=== PATIENT | female | born 1935 | race Caucasian/White ===

== ENCOUNTER → 2017-11-13 15:51 | Outpatient (CLI) | payer MEDICARE, MEDICAID, SELFPAY ==
[2017-11-13 16:43] LABS: Basophils % 0.2 % (0.1-2.0); Eosinophils # 0.1 K/mm3 (0.0-0.4); Eosinophils % 0.7 % (0.1-12.0); Hematocrit 38.3 % (37.0-47.0); Hemoglobin 12.5 g/dL (12.2-16.2); Lymphocytes # 1.8 K/mm3 (0.7-4.5); Lymphocytes % 19.9 K/mm3 (10-50); Mean Corpuscular HGB Conc 32.6 g/dL (31.8-35.4); Mean Corpuscular Volume 79.9 fl (81-99); Mean Platelet Volume 7.4 fl (7.4-10.4); Monocytes # 0.5 K/mm3 (0.1-1.0); Monocytes % 4.9 % (1.7-9.3); Neutrophils # 6.9 K/mm3 (1.8-7.8); Neutrophils % 74.2 % (37.0-80.0); Platelet Count 328 K/mm3 (142-424); Red Blood Count 4.79 M/mm3 (4.20-5.40); Red Cell Distribution Width 15.9 % (11.5-17.5); White Blood Count 9.3 K/mm3 (4.8-10.8)
[2017-11-13 20:02] LABS: Alanine Aminotransferase 21 U/L (12-78); Albumin Level 3.9 gm/dL (3.4-5.0); Albumin/Globulin Ratio 1.4 (1.1-1.8); Alkaline Phosphatase 86 U/L (46-116); Bilirubin,Total 0.6 mg/dL (0.2-1.0); Blood Urea Nitrogen 7 mg/dL (7-18); Calcium 8.7 mg/dL (8.5-10.1); Carbon Dioxide 24 mmol/L (21.0-32.0); Cholesterol 134 mg/dL (140-200); Creatinine,Serum 0.58 mg/dL (0.55-1.02); Estimated Glomerular Filt Rate 100 ml/min (>60); GFR (African American) 121 ML/MIN (>60); Globulin 2.7 gm/dl (1.3-3.2); Glucose 159 mg/dL (74-106); HDL Cholesterol 67 mg/dL (29-89); LDL Cholesterol 37 mg/dL (0-130); Total Protein,Serum 6.6 gm/dL (6.4-8.2); Triglycerides 148 mg/dL (30-200); VLDL Cholesterol 30 mg/dL (0-40)
[2017-11-13 20:16] LABS: Anion Gap 14.5 mEq/L (5-15); Chloride 84 mmol/L (98-107); Sodium 118 mmol/L (136-145)
[2017-11-13 20:18] LABS: Hemoglobin A1C 7.4 % (0.0-7.0)
[2017-11-13 20:22] LABS: Aspartate Amino Transferase 13 U/L (15-37); Potassium 4.5 mmoL/L (3.5-5.1)
== END ==
PROVIDERS: PCP Internal Medicine Adolescent Medicine; Visit Provider Nurse Practitioner Family
DX: E11.69 Type 2 diabetes mellitus with other specified complication (principal); Z00.00 Encounter for general adult medical examination without abnormal findings; I10 Essential (primary) hypertension; K52.9 Noninfective gastroenteritis and colitis, unspecified
CPT/HCPCS: 36415; 80053; 80061; 83036; 85025

== ENCOUNTER → 2017-12-04 14:42 | Outpatient (CLI) | payer MEDICARE, MEDICAID, SELFPAY ==
[2017-12-04 14:59] LABS: Basophils % 0.4 % (0.1-2.0); Eosinophils # 0.1 K/mm3 (0.0-0.4); Eosinophils % 0.8 % (0.1-12.0); Hematocrit 36.8 % (37.0-47.0); Hemoglobin 12.3 g/dL (12.2-16.2); Lymphocytes % 27.8 K/mm3 (10-50); Mean Corpuscular HGB Conc 33.4 g/dL (31.8-35.4); Mean Corpuscular Hemoglobin 27.1 pg (27.0-31.2); Mean Platelet Volume 6.7 fl (7.4-10.4); Monocytes # 0.4 K/mm3 (0.1-1.0); Monocytes % 5.3 % (1.7-9.3); Neutrophils # 4.8 K/mm3 (1.8-7.8); Neutrophils % 65.6 % (37.0-80.0); Platelet Count 357 K/mm3 (142-424); Red Blood Count 4.55 M/mm3 (4.20-5.40); Red Cell Distribution Width 16.7 % (11.5-17.5); White Blood Count 7.3 K/mm3 (4.8-10.8)
[2017-12-04 15:23] LABS: Alanine Aminotransferase 24 U/L (12-78); Albumin/Globulin Ratio 1.5 (1.1-1.8); Alkaline Phosphatase 70 U/L (46-116); Anion Gap 13.1 mEq/L (5-15); Aspartate Amino Transferase 11 U/L (15-37); Bilirubin,Total 0.6 mg/dL (0.2-1.0); Blood Urea Nitrogen 10 mg/dL (7-18); Carbon Dioxide 25 mmol/L (21.0-32.0); Chloride 96 mmol/L (98-107); Creatinine,Serum 0.64 mg/dL (0.55-1.02); Estimated Glomerular Filt Rate 89 ml/min (>60); Free Thyroxine Index 2.9 ug/dL (5.93-13.13); GFR (African American) 108 ML/MIN (>60); Globulin 2.6 gm/dl (1.3-3.2); Glucose 146 mg/dL (74-106); Potassium 5.1 mmoL/L (3.5-5.1); Sodium 129 mmol/L (136-145); T4 (Thyroxine) 8.1 ug/dl (4.7-13.3); Thyroid Stimulating Hormone 3.76 uIU/ml (0.358-3.740); Total Protein,Serum 6.6 gm/dL (6.4-8.2); Triiodothryronine (T3) Uptake 36 % (31-39)
== END ==
PROVIDERS: PCP Internal Medicine Adolescent Medicine; Visit Provider Internal Medicine Adolescent Medicine
DX: E87.1 Hypo-osmolality and hyponatremia (principal); R53.83 Other fatigue; R53.81 Other malaise
CPT/HCPCS: 36415; 80053; 84436; 84443; 84479; 85025

== ENCOUNTER → 2017-12-11 13:07 | Outpatient (CLI) | payer MEDICARE, MEDICAID, SELFPAY ==
[2017-12-11 14:20] LABS: Anion Gap 15.4 mEq/L (5-15); Blood Urea Nitrogen 10 mg/dL (7-18); Calcium 8.6 mg/dL (8.5-10.1); Carbon Dioxide 24 mmol/L (21.0-32.0); Chloride 94 mmol/L (98-107); Creatinine,Serum 0.66 mg/dL (0.55-1.02); Estimated Glomerular Filt Rate 86 ml/min (>60); GFR (African American) 104 ML/MIN (>60); Glucose 192 mg/dL (74-106); Potassium 4.4 mmoL/L (3.5-5.1); Sodium 129 mmol/L (136-145)
[2017-12-11 14:21] LABS: Basophils % 0.5 % (0.1-2.0); Eosinophils # 0.1 K/mm3 (0.0-0.4); Hematocrit 35.6 % (37.0-47.0); Hemoglobin 11.6 g/dL (12.2-16.2); Lymphocytes # 1.6 K/mm3 (0.7-4.5); Lymphocytes % 22.8 K/mm3 (10-50); Mean Corpuscular HGB Conc 32.5 g/dL (31.8-35.4); Mean Corpuscular Hemoglobin 26.7 pg (27.0-31.2); Mean Corpuscular Volume 82.2 fl (81-99); Mean Platelet Volume 7.1 fl (7.4-10.4); Monocytes # 0.3 K/mm3 (0.1-1.0); Monocytes % 4.9 % (1.7-9.3); Neutrophils # 4.9 K/mm3 (1.8-7.8); Neutrophils % 70.8 % (37.0-80.0); Platelet Count 379 K/mm3 (142-424); Red Blood Count 4.32 M/mm3 (4.20-5.40); Red Cell Distribution Width 17.2 % (11.5-17.5); White Blood Count 6.9 K/mm3 (4.8-10.8)
== END ==
PROVIDERS: PCP Internal Medicine Adolescent Medicine; Visit Provider Internal Medicine Adolescent Medicine
DX: E87.1 Hypo-osmolality and hyponatremia (principal); R53.83 Other fatigue
CPT/HCPCS: 36415; 80048; 85025

== ENCOUNTER → 2018-01-13 08:56 | Outpatient (CLI) | payer MEDICARE, MEDICAID, SELFPAY ==
[2018-01-13 09:14] LABS: Basophils % 0.3 % (0.1-2.0); Eosinophils # 0.1 K/mm3 (0.0-0.4); Eosinophils % 1.4 % (0.1-12.0); Hematocrit 39.6 % (37.0-47.0); Hemoglobin 13.1 g/dL (12.2-16.2); Lymphocytes # 1.7 K/mm3 (0.7-4.5); Lymphocytes % 20.6 % (10-50); Mean Corpuscular Hemoglobin 27.5 pg (27.0-31.2); Mean Corpuscular Volume 83.4 fl (81-99); Mean Platelet Volume 6.9 fl (7.4-10.4); Monocytes # 0.4 K/mm3 (0.1-1.0); Monocytes % 4.8 % (1.7-9.3); Neutrophils # 5.9 K/mm3 (1.8-7.8); Neutrophils % 72.9 % (37.0-80.0); Platelet Count 345 K/mm3 (142-424); Red Blood Count 4.74 M/mm3 (4.20-5.40); White Blood Count 8.2 K/mm3 (4.8-10.8)
[2018-01-13 09:19] LABS: Hemoglobin A1C 8.2 % (0.0-7.0)
[2018-01-13 09:52] LABS: Alanine Aminotransferase 20 U/L (12-78); Albumin/Globulin Ratio 1.4 (1.1-1.8); Alkaline Phosphatase 97 U/L (46-116); Anion Gap 12.9 mEq/L (5-15); Aspartate Amino Transferase 7 U/L (15-37); Bilirubin,Total 0.6 mg/dL (0.2-1.0); Blood Urea Nitrogen 8 mg/dL (7-18); Carbon Dioxide 27 mmol/L (21.0-32.0); Chloride 93 mmol/L (98-107); Cholesterol 205 mg/dL (140-200); Creatinine,Serum 0.69 mg/dL (0.55-1.02); Estimated Glomerular Filt Rate 82 ml/min (>60); GFR (African American) 99 ML/MIN (>60); Globulin 2.8 gm/dl (1.3-3.2); Glucose 196 mg/dL (74-106); HDL Cholesterol 69 mg/dL (29-89); LDL Cholesterol 106 mg/dL (0-130); Potassium 4.9 mmoL/L (3.5-5.1); Sodium 128 mmol/L (136-145); Total Protein,Serum 6.8 gm/dL (6.4-8.2); Triglycerides 151 mg/dL (30-200); VLDL Cholesterol 30 mg/dL (0-40)
== END ==
PROVIDERS: Visit Provider Internal Medicine Adolescent Medicine
DX: E87.1 Hypo-osmolality and hyponatremia (principal); E11.9 Type 2 diabetes mellitus without complications; E11.69 Type 2 diabetes mellitus with other specified complication
CPT/HCPCS: 36415; 80053; 80061; 83036; 85025

== ENCOUNTER → 2018-04-23 12:55 | Outpatient (CLI) | payer MEDICARE, MEDICAID, SELFPAY ==
--- NOTE | 2018-04-23 13:03 | XR_ITS ---
XR DEXA axial skeleton HISTORY: ITS.REASON: POST MENOPAUSAL SCREENING ORDERING PHYSICIAN: Drew Franks MD PATIENT AGE: 82 years COMPARISON: None FINDINGS: The BMD measured at the Left femoral neck is 1.150 g/cm squared with a T score of 0.8. This is considered Normal according to the World Health Organization criteria. Fracture risk is Low. The L1 L4 density has T score of 3.6. IMPRESSION: Normal bone density. No fracture is. Suggest follow-up exam April 2020
[2018-04-23 16:44] LABS: Hemoglobin A1C 12.1 % (0.0-7.0)
[2018-04-23 16:54] LABS: Anion Gap 15.7 mEq/L (5-15); Blood Urea Nitrogen 18 mg/dL (7-18); Calcium 8.9 mg/dL (8.5-10.1); Carbon Dioxide 25 mmol/L (21.0-32.0); Chloride 99 mmol/L (98-107); Creatinine,Serum 0.82 mg/dL (0.55-1.02); Estimated Glomerular Filt Rate 67 ml/min (>60); GFR (African American) 81 ML/MIN (>60); Glucose 348 mg/dL (74-106); Potassium 4.7 mmoL/L (3.5-5.1); Sodium 135 mmol/L (136-145)
== END ==
PROVIDERS: PCP Internal Medicine Adolescent Medicine; Visit Provider Internal Medicine Adolescent Medicine
DX: Z78.0 Asymptomatic menopausal state (principal); E11.9 Type 2 diabetes mellitus without complications; E87.1 Hypo-osmolality and hyponatremia; Z79.84 Long term (current) use of oral hypoglycemic drugs
CPT/HCPCS: 36415; 77080; 80048; 83036

== ENCOUNTER → 2018-07-23 14:22 | Outpatient (CLI) | payer MEDICARE, MEDICAID, SELFPAY ==
[2018-07-23 16:15] LABS: Alanine Aminotransferase 20 U/L (12-78); Albumin Level 3.8 gm/dL (3.4-5.0); Albumin/Globulin Ratio 1.4 (1.1-1.8); Alkaline Phosphatase 82 U/L (46-116); Anion Gap 13.4 mEq/L (5-15); Aspartate Amino Transferase 9 U/L (15-37); Bilirubin,Total 0.5 mg/dL (0.2-1.0); Blood Urea Nitrogen 13 mg/dL (7-18); Calcium 8.5 mg/dL (8.5-10.1); Carbon Dioxide 27 mmol/L (21.0-32.0); Chloride 99 mmol/L (98-107); Estimated Glomerular Filt Rate 81 ml/min (>60); GFR (African American) 97 ML/MIN (>60); Globulin 2.7 gm/dl (1.3-3.2); Glucose 160 mg/dL (74-106); Potassium 4.4 mmoL/L (3.5-5.1); Sodium 135 mmol/L (136-145); Total Protein,Serum 6.5 gm/dL (6.4-8.2)
[2018-07-23 18:53] LABS: Hemoglobin A1C 7.8 % (0.0-7.0)
== END ==
PROVIDERS: Visit Provider Internal Medicine Adolescent Medicine
DX: E11.69 Type 2 diabetes mellitus with other specified complication
CPT/HCPCS: 36415; 80053; 83036

== ENCOUNTER → 2018-10-22 14:46 | Outpatient (CLI) | payer MEDICARE, MEDICAID, SELFPAY ==
[2018-10-22 17:20] LABS: Alanine Aminotransferase 17 U/L (12-78); Alkaline Phosphatase 87 U/L (46-116); Calcium 8.8 mg/dL (8.5-10.1); Chloride 98 mmol/L (98-107); Cholesterol 174 mg/dL (140-200); Potassium 4.6 mmoL/L (3.5-5.1); Sodium 134 mmol/L (136-145); Total Protein,Serum 6.5 gm/dL (6.4-8.2); Triglycerides 222 mg/dL (30-200); VLDL Cholesterol 44 mg/dL (0-40)
[2018-10-22 17:22] LABS: Albumin Level 3.9 gm/dL (3.4-5.0); Albumin/Globulin Ratio 1.5 (1.1-1.8); Anion Gap 14.6 mEq/L (5-15); Aspartate Amino Transferase 12 U/L (15-37); Bilirubin,Total 0.4 mg/dL (0.2-1.0); Blood Urea Nitrogen 12 mg/dL (7-18); Carbon Dioxide 26 mmol/L (21.0-32.0); Chol/HDL Ratio 3.3 (1-3.5); Creatinine,Serum 0.78 mg/dL (0.55-1.02); Estimated Glomerular Filt Rate 71 ml/min (>60); GFR (African American) 86 ML/MIN (>60); Globulin 2.6 gm/dl (1.3-3.2); Glucose 137 mg/dL (74-106); HDL Cholesterol 52 mg/dL (29-89); LDL Cholesterol 78 mg/dL (0-130)
[2018-10-22 23:23] LABS: Hemoglobin A1C 7.8 % (0.0-7.0)
== END ==
PROVIDERS: Visit Provider Internal Medicine Adolescent Medicine
DX: E11.69 Type 2 diabetes mellitus with other specified complication (principal)
CPT/HCPCS: 36415; 80053; 80061; 83036

== ENCOUNTER → 2022-03-27 08:54 | Outpatient (CLI) | payer MEDICARE, MEDICAID, SELFPAY ==
--- NOTE | 2022-03-27 09:05 | XR_ITS ---
FINAL REPORT CLINICAL HISTORY: hip pain FINDINGS: RIGHT HIP Two views of the right hip demonstrate no acute fracture or dislocation. There is marked narrowing of the right hip space, near obliteration of the joint space. There is sclerosis and lucency in the right femoral head, cannot exclude some element of avascular necrosis in the right femoral head. There are advanced changes of degenerative disc disease in the lower lumbar spine with vacuum disc phenomenon. No soft tissue abnormality is seen. IMPRESSION: Findings are consistent with advanced osteoarthritis, cannot exclude some element of avascular necrosis in the right femoral head. Reviewed, Interpreted and Dictated by Jose Lawrence MD Transcribed by Tierney Lopez Authenticated and [facility]
== END ==
PROVIDERS: Visit Provider Orthopaedic Surgery
DX: M25.551 Pain in right hip (principal)
CPT/HCPCS: 73502

== ENCOUNTER 2022-05-12 07:20 | Observation (INO) | payer MEDICARE, MEDICAID, SELFPAY ==
[2022-05-12] VITALS (13 sets, daily range): BP systolic 150–197; BP diastolic 57–83; PULSE 60–89; RESP 17–22; TEMP 36.6–36.8; O2SAT 79–94; BMI 32.5
--- NOTE | 2022-05-12 07:27 | PC.NURSE ---
ANITA FIELD at
--- NOTE | 2022-05-12 07:29 | ECG_ITS ---
APPROVED REPORT Exam: Resting ECG HR:87 bpm ECG Measurements Heart Rate 87 AXES IL 178 P 29 QRSd 96 QRS -4 QT 371 T 96 QTc 416 Conclusion SINUS RHYTHM WITH OCCASIONAL VENTRICULAR PREMATURE COMPLEXES MODERATE T-WAVE ABNORMALITY, CONSIDER LATERAL ISCHEMIA [-0.1+ mV T-WAVE IN I/aVL/V5/V6] ABNORMAL ECG UNCONFIRMED REPORT Electronically signed by : Drew Franks MD 05/12/2022 20:26:09
--- NOTE | 2022-05-12 07:33 | XR_ITS ---
PROCEDURE INFORMATION: Exam: XR Chest Exam date and time: 05/12/2022 7:54 AM Age: 86 years old Clinical indication: Shortness of breath; Additional info: SOA TECHNIQUE: Imaging protocol: Radiologic exam of the chest. Views: 1 view. Portable chest x-ray. COMPARISON: No relevant prior studies available. FINDINGS: Lungs: Perihilar and bibasilar interstitial opacities and peribronchial thickening. No confluent airspace consolidation. Lung volumes are low. Pleural spaces: No pleural effusion. No pneumothorax. Heart/Mediastinum: Borderline cardiomegaly. Bones/joints: No fractures or bone lesions. IMPRESSION: 1. Parahilar and bibasilar hazy interstitial opacities and peribronchial thickening may be due to pulmonary edema or pneumonia, either viral or atypical. 2. Low lung volumes. 3. Borderline cardiomegaly. Consider congestive heart failure.
--- NOTE | 2022-05-12 07:38 | HMH.EDGENADL ---
Discharge Plan Disposition Patient Disposition: Admitted As Inpatient Condition: Fair Prescriptions Prescriptions: No Action insulin lispro [Humalog KwikPen Insulin] 100 unit/mL insulin pen SQ amlodipine 10 mg tablet 10 mg PO DAILY atorvastatin 20 mg tablet 20 mg PO DAILY escitalopram oxalate 10 mg tablet 10 mg PO DAILY glimepiride 1 mg tablet 1 mg PO DAILY naproxen 375 mg tablet 375 mg PO DAILY memantine 10 mg tablet 10 mg PO BID levothyroxine 50 mcg tablet 50 mcg PO DAILY pantoprazole 20 mg tablet,delayed release (DR/EC) PO donepezil 10 mg tablet 10 mg PO DAILY Trulicity 0.75 mg/0.5 mL pen injector SQ memantine 5 mg tablet 5 mg PO BID Label Comments: TAKE ONE TABLET BY MOUTH EVERY DAY naproxen 375 mg tablet,delayed release (DR/EC) 375 mg PO BID Label Comments: TAKE ONE TABLET BY MOUTH TWICE DAILY --TAKE WITH FOOD-- acetaminophen-codeine 300-30 mg tablet 1 tab PO BID Qty: 60 2RF Rx Instructions: Give 1 tablet twice daily @ 8am & 8pm Referrals Follow up/Referrals: Santi Dee MD [Primary Care Provider] - See instructions Clinical Impressions Clinical Impression: CHF exacerbation Discharge ED Provider: Dami Mendoza General Adult HPI <Syed Schulte MD - Last Filed: 05/12/22 07:43> General Chief complaint: Shortness of Breath/Dyspnea Stated complaint: SOA, new onset O2 need Time Seen by Provider: 05/12/22 07:30 Mode of Arrival: EMS Source of Information: Patient and EMS Limitations: No Limitations History of Present Illness HPI narrative: Patient presents to the emergency department after reportedly being feeling short of breath and hypoxic at her nursing care facility. The patient has an unspecified respiratory problem however does not use supplemental oxygen. She comes in complaining of mostly shortness of breath which started this morning. She denies any fever, chills, nausea or vomiting. She describes worsening lower extremity edema. Related Data Home Medications Medication Instructions Recorded Confirmed amlodipine 10 mg tablet 10 mg PO DAILY 03/27/22 03/27/22 atorvastatin 20 mg tablet 20 mg PO DAILY 03/27/22 03/27/22 donepezil 10 mg tablet 10 mg PO DAILY 03/27/22 03/27/22 dulaglutide 0.75 mg/0.5 mL ml SQ 03/27/22 03/27/22 subcutaneous pen injector (Trulicity) escitalopram oxalate 10 mg tablet 10 mg PO DAILY 03/27/22 03/27/22 glimepiride 1 mg tablet 1 mg PO DAILY 03/27/22 03/27/22 insulin lispro 100 unit/mL ml SQ 03/27/22 03/27/22 subcutaneous pen (Humalog KwikPen (U-100) Insulin) levothyroxine 50 mcg tablet 50 mcg PO DAILY 03/27/22 03/27/22 memantine 10 mg tablet 10 mg PO BID 03/27/22 03/27/22 memantine 5 mg tablet 5 mg PO BID 03/27/22 03/27/22 naproxen 375 mg tablet 375 mg PO DAILY 03/27/22 03/27/22 naproxen 375 mg tablet,delayed 375 mg PO BID 03/27/22 03/27/22 release pantoprazole 20 mg tablet,delayed tab PO 03/27/22 03/27/22 release Previous Rx's Medication Instructions Recorded acetaminophen 300 mg-codeine 30 mg 1 tab PO BID pain #60 tabs 05/03/22 tablet Allergies Allergy/AdvReac Type Severity Reaction Status Date / Time Famotidine Allergy Intermediate CHEST PAIN Uncoded 03/27/22 10:22 Morphine Allergy Intermediate I-ITCHING Uncoded 03/27/22 10:22 Penicillin Allergy Intermediate SWELLING Uncoded 03/27/22 10:22 PPD REACTOR Allergy Unknown Uncoded 03/27/22 10:22 STATIN Allergy Unknown ITCHING/SCR Uncoded 03/27/22 10:22 ATCHING/SWE LLING [facility] <Syed Schulte MD - Last Filed: 05/12/22 07:43> [facility] Disclaimer: The information contained in this section may have been updated after the patient was seen, as this information can be updated by other users. Medical History Diabetes mellitus Osteoarthritis Social History (Reviewed 05/12/22 @ 07:39 by Rob
[2022-05-12 07:42] LABS: Basophils # 0.1 K/mm3 (0-0.2); Basophils % 0.7 % (0.1-2.0); Eosinophils # 0.2 K/mm3 (0.0-0.4); Eosinophils % 2.5 % (0.1-12.0); Hematocrit 31.2 % (37.0-47.0); Hemoglobin 9.8 g/dL (12.2-16.2); Lymphocytes # 2.2 K/mm3 (0.7-4.5); Lymphocytes % 26.8 % (10-50); Mean Corpuscular HGB Conc 31.3 g/dL (31.8-35.4); Mean Corpuscular Hemoglobin 23.4 pg (27.0-31.2); Mean Corpuscular Volume 74.7 fl (81-99); Mean Platelet Volume 9.2 fl (7.4-10.4); Monocytes # 0.5 K/mm3 (0.1-1.0); Monocytes % 6.1 % (1.7-9.3); Neutrophils # 5.2 K/mm3 (1.8-7.8); Neutrophils % 63.9 % (37.0-80.0); Platelet Count 335 K/mm3 (142-424); Red Blood Count 4.18 M/mm3 (4.20-5.40); White Blood Count 8.1 K/mm3 (4.8-10.8)
[2022-05-12 07:46] LABS: Microscopic, Urine URINE MICROSCOPIC (MICROSCOPIC)
[2022-05-12 07:47] LABS: Alanine Aminotransferase 15 U/L (12-78); Albumin Level 4.2 g/dl (3.5-5.0); Albumin/Globulin Ratio 1.6 (1.1-1.8); Alkaline Phosphatase 94 U/L (38-126); Anion Gap 10.1 mEq/L (5-15); Aspartate Amino Transferase 22 U/L (14-36); Bilirubin,Total 0.7 mg/dl (0.2-1.3); Blood Urea Nitrogen 17 mg/dl (7-17); Calcium 8.4 mg/dl (8.4-10.2); Carbon Dioxide 28 mmol/L (22.0-30.0); Chloride 104 mmol/L (98-107); Creatinine Clearance Estimated 59 mL/min (50-200); Estimated Glomerular Filt Rate 95 ml/min (>60); GFR (African American) 115 ML/MIN (>60); Globulin 2.7 g/dL (1.3-3.2); Glucose 135 mg/dl (74-100); Potassium 4.1 mmoL/L (3.5-5.1); Sodium 138 mmol/L (136-145); Total Protein,Serum 6.9 g/dl (6.3-8.2)
[2022-05-12 07:49] LABS: Appearance,Urine CLEAR (Clear); Bilirubin,Urine Negative (Negative); Blood, Urine TRACE-I (Negative); Color,Urine YELLOW (Yellow); Glucose,Urine (UA) Negative (Negative); Ketones,Urine Negative (Negative); Leukocyte Esterase,Urine Negative (Negative); Nitrate,Urine Negative (Negative); PH,Urine 6.5 (5.0-8.5); Protein,Urine 2+ (Negative); Specific Gravity, Urine 1.015 (1.005-1.030); Urobilinogen,Urine 0.2 EU/dl (0.2)
--- NOTE | 2022-05-12 07:49 | PC.NURSE ---
RT notified of ABG order.
[2022-05-12 08:00] LABS: Bacteria,Urine 4+ /lpf; RBC,Urine Occasional #/hpf (0-3); WBC,Urine Occasional #/hpf (0-3)
[2022-05-12 08:00] LABS: NT Pro Brain Natriuretic Pep. 1070 pg/mL (0-450); Troponin I < 0.01 ng/ml (0.00-0.034)
[2022-05-12 08:05] LABS: ABG HCO3 23.6 mmhg (22.0-26.0); ABG Oxygen Saturation 90 % (90-100); ABG PH 7.41 mmol/L (7.35-7.45); ABG PO2 58.9 mmhg (80-100); ABG TCO2 24.8 mmhg (23-27)
[2022-05-12 08:08] LABS: Allen's Test Acceptable; Oxygen 2 L NC %; Source Right Radial
[2022-05-12 08:49] LABS: Coronavirus 19, PCR Not Detected (NotDetected); Influenza A, PCR Not Detected (NotDetected); Influenza B, PCR Not Detected (NotDetected)
--- NOTE | 2022-05-12 09:08 | PC.NURSE ---
Ambulated patient with [place] BOO to bedside commode patient was able to void. Assisted patient back into bed. Call light within reach
--- NOTE | 2022-05-12 09:41 | PC.NURSE ---
Spoke with daughter, per patients request, regarding plan of care/treatment. Pt verbalizes pain. MD notified. New order received. Pt updated on plan of care; awaiting for final results for disposition. Pt assisted back into bed. Reduced environmental stimuli to promote comfort.
--- NOTE | 2022-05-12 09:46 | PC.NURSE ---
Assisted to patient to bedside commode. Patient was able to void and assisted patient back to bed with side rails up. Call light within reach
--- NOTE | 2022-05-12 10:09 | PC.NURSE ---
ANITA FIELD speaking with Dr. rico (hospitalist)
--- NOTE | 2022-05-12 10:18 | PC.NURSE ---
Assisted patient to bedside commode. Patient voided and assisted patient back in bed. Call light within reach
--- NOTE | 2022-05-12 10:19 | PC.NURSE ---
notified dry house attendant of admission
--- NOTE | 2022-05-12 10:41 | PC.NURSE ---
checked on pt at this time, updated pt we will be getting pt to assigned room soon.
--- NOTE | 2022-05-12 10:48 | PC.NURSE ---
Report provided to CHRISTINA Olivas
[2022-05-12 11:20] LABS: Troponin I < 0.01 ng/ml (0.00-0.034)
--- NOTE | 2022-05-12 13:55 | EXP.HP ---
History of Present Illness *Admission Date: 05/12/22 *Reason for visit:: Shortness of breath *History of present illness: 86-year-old female presenting to the emergency department after feeling shortness of breath at her nursing facility. She was also hypoxic. She states that the last month or so she has been having progressively worsening dyspnea orthopnea and lower extremity edema. She has no sick contacts. No specific respiratory problems previously. Complains of shortness of breath primarily and denies any fevers chills nausea or vomiting. She does not smoke. Does not have a history of heart problems that she is aware of. No kidney problems. Denies chest pain [facility] Disclaimer: The information contained in this section may have been updated after the patient was seen, as this information can be updated by other users. Medical History (Updated 05/12/22 @ 14:03 by Cristopher Garg MD) Diabetes mellitus HLD (hyperlipidemia) HTN (hypertension) Hypothyroid Osteoarthritis Surgical History (Updated 05/12/22 @ 13:48 by Alyce Burns RN) H/O abdominal hysterectomy History of bilateral knee replacement Hx of cholecystectomy Social History (Updated 05/12/22 @ 13:48 by Alyce Burns RN) Smoking Status: Former smoker alcohol intake: never current occupational status: retired Travel in the last 8 weeks: None Review of Systems Constitutional Constitutional: Reports as per [facility] Meds Home Medications and Allergies Home Medications Medication Instructions Recorded Confirmed Type amlodipine 10 mg tablet 10 mg PO DAILY 03/27/22 03/27/22 History atorvastatin 20 mg tablet 20 mg PO DAILY 03/27/22 03/27/22 History donepezil 10 mg tablet 10 mg PO DAILY 03/27/22 03/27/22 History dulaglutide 0.75 mg/0.5 mL ml SQ 03/27/22 03/27/22 History subcutaneous pen injector (Trulicity) escitalopram oxalate 10 mg tablet 10 mg PO DAILY 03/27/22 03/27/22 History glimepiride 1 mg tablet 1 mg PO DAILY 03/27/22 03/27/22 History insulin lispro 100 unit/mL ml SQ 03/27/22 03/27/22 History subcutaneous pen (Humalog KwikPen (U-100) Insulin) levothyroxine 50 mcg tablet 50 mcg PO DAILY 03/27/22 03/27/22 History memantine 10 mg tablet 10 mg PO BID 03/27/22 03/27/22 History memantine 5 mg tablet 5 mg PO BID 03/27/22 03/27/22 History naproxen 375 mg tablet 375 mg PO DAILY 03/27/22 03/27/22 History naproxen 375 mg tablet,delayed 375 mg PO BID 03/27/22 03/27/22 History release pantoprazole 20 mg tablet,delayed tab PO 03/27/22 03/27/22 History release acetaminophen 300 mg-codeine 30 mg 1 tab PO BID pain #60 tabs 05/03/22 Rx tablet New Prescriptions to Start Prescriptions: Allergies Allergy/AdvReac Type Severity Reaction Status Date / Time Famotidine Allergy Intermediate CHEST PAIN Uncoded 03/27/22 10:22 Morphine Allergy Intermediate I-ITCHING Uncoded 03/27/22 10:22 Penicillin Allergy Intermediate SWELLING Uncoded 03/27/22 10:22 PPD REACTOR Allergy Unknown Uncoded 03/27/22 10:22 STATIN Allergy Unknown ITCHING/SCR Uncoded 03/27/22 10:22 ATCHING/SWE LLING Exam Data for Last 24 hours Vital signs and Labs for Last 24 Hours: Temp Pulse Resp BP Pulse Ox 98 F 77 17 164/69 H 91 L 05/12/22 11:22 05/12/22 11:22 05/12/22 11:22 05/12/22 11:22 05/12/22 10:56 Laboratory Results - last 24 hr 05/12/22 07:28: Urine Color Yellow, Urine Appearance Clear, Urine pH 6.5, Ur Specific [place] 1.015, Urine Protein 2+, Urine Glucose (UA) Negative, Urine Ketones Negative, Urine Blood Trace-i, Urine Nitrate Negative, Urine Bilirubin Negative, Urine Urobilinogen 0.2, Ur Leukocyte Esterase Negative, Urine RBC Occasional, Urine WBC Occasional, Ur Squamous Epith Cells 3-5, Urine Bacteria 4+ 05/12/22 07:32: WBC 8.1, RBC 4.18 L, Hgb 9.8 L, Hct 31.2 L, MCV 74.7 L, MCH 23.4 L, MCHC 31.3 L, RDW 17.0, Plt Count 335, MPV 9.2, Neut % (Auto) 63.9, Lymph % (Auto) 26.8, [place] % (Auto) 6.1, Eos % (Auto) 2
[2022-05-12 14:21] LABS: Iron 32 ug/dL (37-170)
[2022-05-12 14:31] LABS: Total Iron Binding Capacity 383 ug/dL (265-497)
[2022-05-12 14:35] LABS: Troponin I < 0.01 ng/ml (0.00-0.034)
--- NOTE | 2022-05-12 14:37 | PC.NURSE ---
PT ARRIVED TO FLOOR BY WHEELCHAIR AT 1102.
[2022-05-12 14:59] LABS: Ferritin 10.2 ng/ml (11.1-264)
[2022-05-12 15:23] LABS: Hemoglobin A1C 8.9 % (4.0-6.0)
--- NOTE | 2022-05-12 17:54 | PC.NURSE ---
NEW ADMIT THIS SHIFT. REQUIRING 2LNC FOR O2 SUPPORT. AMBULATING IN ROOM WITH STANDBY ASSIST TO BSC.
[2022-05-12 18:41] LABS: POC Glucose,Bedside 259 (70-110)
[2022-05-12 20:23] LABS: POC Glucose,Bedside 273 (70-110)
[2022-05-13] VITALS (8 sets, daily range): BP systolic 115–167; BP diastolic 47–83; PULSE 50–80; RESP 18; TEMP 36.9–37.3; O2SAT 93–97; BMI 32.0
--- NOTE | 2022-05-13 05:58 | PC.NURSE ---
patient a&ox4. pt is stable on 2L. no complaints through the night. pt is on tele.
[2022-05-13 06:21] LABS: POC Glucose,Bedside 130 (70-110)
[2022-05-13 07:52] LABS: Basophils % 0.5 % (0.1-2.0); Eosinophils # 0.2 K/mm3 (0.0-0.4); Eosinophils % 2.8 % (0.1-12.0); Hematocrit 32.9 % (37.0-47.0); Hemoglobin 10.2 g/dL (12.2-16.2); Lymphocytes # 1.4 K/mm3 (0.7-4.5); Lymphocytes % 23.3 % (10-50); Mean Corpuscular Hemoglobin 23.1 pg (27.0-31.2); Mean Corpuscular Volume 74.5 fl (81-99); Mean Platelet Volume 8.7 fl (7.4-10.4); Monocytes # 0.4 K/mm3 (0.1-1.0); Monocytes % 7.3 % (1.7-9.3); Neutrophils # 3.9 K/mm3 (1.8-7.8); Neutrophils % 66.1 % (37.0-80.0); Platelet Count 328 K/mm3 (142-424); Red Blood Count 4.42 M/mm3 (4.20-5.40); White Blood Count 5.9 K/mm3 (4.8-10.8)
[2022-05-13 08:02] LABS: Alanine Aminotransferase 15 U/L (12-78); Albumin Level 4.2 g/dl (3.5-5.0); Albumin/Globulin Ratio 1.7 (1.1-1.8); Alkaline Phosphatase 90 U/L (38-126); Anion Gap 10.1 mEq/L (5-15); Aspartate Amino Transferase 25 U/L (14-36); Bilirubin,Total 0.8 mg/dl (0.2-1.3); Blood Urea Nitrogen 17 mg/dl (7-17); Calcium 8.5 mg/dl (8.4-10.2); Carbon Dioxide 33 mmol/L (22.0-30.0); Chloride 100 mmol/L (98-107); Creatinine Clearance Estimated 58 mL/min (50-200); Estimated Glomerular Filt Rate 80 ml/min (>60); GFR (African American) 96 ML/MIN (>60); Globulin 2.5 g/dL (1.3-3.2); Glucose 168 mg/dl (74-100); Magnesium 1.9 mg/dl (1.6-2.3); Phosphorous 4.3 mg/dl (2.5-4.5); Potassium 4.1 mmoL/L (3.5-5.1); Sodium 139 mmol/L (136-145); Total Protein,Serum 6.7 g/dl (6.3-8.2)
--- NOTE | 2022-05-13 10:00 | EXP.ACUTE.PN ---
Subjective *Date: 05/13/22 *Time: 10:00 Interval history: Feeling better, breathing better, extremity edema improved Medical Exam Vital signs and Labs for Last 24 Hours: Vital Signs Temp Pulse Pulse Resp BP BP Pulse Ox 05/13/22 07:59 98.4 F 69 18 153/83 H 95 05/13/22 04:00 50 L 05/13/22 04:00 98.4 F 75 18 130/78 96 05/12/22 20:00 60 05/13/22 00:00 99.2 F 64 18 167/63 H 93 L 05/12/22 20:00 98.3 F 67 18 150/57 H 92 L 05/12/22 16:00 80 05/12/22 15:55 97.9 F 63 22 155/66 H 90 L 05/12/22 12:00 70 05/12/22 11:22 98 F 77 17 164/69 H 05/12/22 10:56 65 167/60 H 91 L 05/12/22 11:00 97.9 F 65 18 167/60 H 05/12/22 10:30 78 20 91 L Intake and Output 05/12/22 05/13/22 05/13/22 23:59 07:59 15:59 Intake Total 480 / 580 100 / 460 360 / 460 Output Total 450 / 3050 1350 / 1350 0 / 1350 Balance 30 / -2470 -1250 / -890 360 / -890 Intake: Intake, Oral Amount 480 / 580 100 / 460 360 / 460 Output: Output, Urine Amount 450 / 3050 1350 / 1350 0 / 1350 Other: Number of Unmeasured Voids 1 1 Number of Bowel Movements 1 Weight 87.146 kg Patient Weight 05/13/22 23:59 Weight 87.146 kg Laboratory Results - last 24 hr 05/12/22 07:28: Urine Color Yellow, Urine Appearance Clear, Urine pH 6.5, Ur Specific [place] 1.015, Urine Protein 2+, Urine Glucose (UA) Negative, Urine Ketones Negative, Urine Blood Trace-i, Urine Nitrate Negative, Urine Bilirubin Negative, Urine Urobilinogen 0.2, Ur Leukocyte Esterase Negative, Urine RBC Occasional, Urine WBC Occasional, Ur Squamous Epith Cells 3-5, Urine Bacteria 4+ 05/12/22 07:32: Hemoglobin A1c 8.9 H 05/12/22 07:32: Iron 32 L, TIBC 383, Iron Saturation 8.27472 L, Ferritin 10.2 L 05/12/22 07:32: TSH 10.30 H 05/12/22 10:48: Troponin I < 0.01 05/12/22 13:59: Troponin I < 0.01 05/12/22 18:29: POC Glucose 259 H 05/12/22 20:16: POC Glucose 273 H 05/13/22 06:14: POC Glucose 130 H 05/13/22 07:35: WBC 5.9 D, RBC 4.42, Hgb 10.2 L, Hct 32.9 L, MCV 74.5 L, MCH 23.1 L, MCHC 31.0 L, RDW 17.0, Plt Count 328, MPV 8.7, Neut % (Auto) 66.1, Lymph % (Auto) 23.3, Sac % (Auto) 7.3, Eos % (Auto) 2.8, Baso % (Auto) 0.5, Neut # (Auto) 3.9, Lymph # (Auto) 1.4, Sac # (Auto) 0.4, Eos # (Auto) 0.2, Baso # (Auto) 0.0 05/13/22 07:35: Sodium 139, Potassium 4.1, Chloride 100, Carbon Dioxide 33 H, Anion Gap 10.1, BUN 17, Creatinine 0.70, Estimated Creat Clear 58, Estimated GFR 80, Est GFR ( Amer) 96, Glucose 168 H, Calcium 8.5, Phosphorus 4.3, Magnesium 1.9, Total Bilirubin 0.8, AST 25, ALT 15, Alkaline Phosphatase 90, Total Protein 6.7, Albumin 4.2, Globulin 2.5, Albumin/Globulin Ratio 1.7 I & O for Labs for Last 24 Hours: Intake & Output 05/10/22 05/11/22 05/12/22 05/13/22 23:59 23:59 23:59 23:59 Intake Total 480 / 580 460 / 460 Output Total 1999 / 3050 1350 / 1350 Balance -1520 / -2470 -890 / -890 Weight 88.904 kg 87.146 kg Microbiology Reports for the Last 24 Hours: Microbiology 05/12/22 07:28 Urine,Clean Catch Urine Culture - Preliminary Gram Negative Rods Constitutional: Present no acute distress Respiratory: Present normal respiratory effort Cardiac: Present Reg Rate and Rhythm GI: Present normal bowel sounds; Absent tenderness Extremities: Present normal inspection and full ROM Skin: Present intact; Absent erythema Neuro: Present Grossly Intact and moves all extremities Assessment and Plan *Assessment and plan (1) Osteoarthritis of right hip: Status: Acute Category: Medical Code(s): M16.11 - Unilateral primary osteoarthritis, right hip (2) CHF exacerbation: Status: Acute Category: Medical Code(s): I50.9 - Heart failure, unspecified (3) Diabetes: Status: Acute Category: Medical Code(s): E11.9 - Type 2 diabetes mellitus without complications Plan 86-year-old female who presents w
[2022-05-13 11:32] LABS: POC Glucose,Bedside 183 (70-110)
[2022-05-13 17:13] LABS: POC Glucose,Bedside 294 (70-110)
[2022-05-13 20:39] LABS: POC Glucose,Bedside 126 (70-110)
--- NOTE | 2022-05-13 23:41 | PC.NURSE ---
COURTESY ROUND PATIENT AWAKE . PATIENT VOICED NO NEEDS AT THIS TIME . TRASH AND LINENS EMPTIED . WATER PITCHER REFILLED . CALL LIGHT WITH IN REACH
[2022-05-14] VITALS: BP 133/73; PULSE 60; RESP 18; TEMP 36.9; O2SAT 97
[2022-05-14 04:00] VITALS: BP 121/54; PULSE 63; PULSE 73; RESP 18; TEMP 37.2; O2SAT 96; BMI 31.6
--- NOTE | 2022-05-14 04:07 | PC.NURSE ---
Pt. is aox4. pt is stable on 2L. no complaints through the night. pt is on tele. pt. gets up to bsc without assistant research scientist's.
[2022-05-14 06:12] LABS: POC Glucose,Bedside 190 (70-110)
[2022-05-14 07:27] LABS: Basophils % 0.7 % (0.1-2.0); Eosinophils # 0.2 K/mm3 (0.0-0.4); Eosinophils % 3.6 % (0.1-12.0); Hemoglobin 9.9 g/dL (12.2-16.2); Lymphocytes # 1.3 K/mm3 (0.7-4.5); Lymphocytes % 27.4 % (10-50); Mean Corpuscular HGB Conc 30.1 g/dL (31.8-35.4); Mean Corpuscular Hemoglobin 22.6 pg (27.0-31.2); Mean Corpuscular Volume 75.1 fl (81-99); Mean Platelet Volume 8.9 fl (7.4-10.4); Monocytes # 0.4 K/mm3 (0.1-1.0); Neutrophils # 2.9 K/mm3 (1.8-7.8); Neutrophils % 59.3 % (37.0-80.0); Platelet Count 311 K/mm3 (142-424); White Blood Count 4.8 K/mm3 (4.8-10.8)
[2022-05-14 07:32] LABS: Alanine Aminotransferase 14 U/L (12-78); Albumin Level 3.8 g/dl (3.5-5.0); Albumin/Globulin Ratio 1.7 (1.1-1.8); Alkaline Phosphatase 81 U/L (38-126); Anion Gap 8.6 mEq/L (5-15); Aspartate Amino Transferase 26 U/L (14-36); Bilirubin,Total 0.7 mg/dl (0.2-1.3); Blood Urea Nitrogen 20 mg/dl (7-17); Calcium 8.3 mg/dl (8.4-10.2); Carbon Dioxide 37 mmol/L (22.0-30.0); Chloride 99 mmol/L (98-107); Creatinine Clearance Estimated 57 mL/min (50-200); Estimated Glomerular Filt Rate 80 ml/min (>60); GFR (African American) 96 ML/MIN (>60); Globulin 2.3 g/dL (1.3-3.2); Glucose 169 mg/dl (74-100); Phosphorous 4.5 mg/dl (2.5-4.5); Potassium 3.6 mmoL/L (3.5-5.1); Sodium 141 mmol/L (136-145); Total Protein,Serum 6.1 g/dl (6.3-8.2)
[2022-05-14 07:40] LABS: Magnesium 1.9 mg/dl (1.6-2.3)
[2022-05-14 08:00] VITALS: BP 145/66; PULSE 67; PULSE 84; RESP 18; TEMP 36.7; O2SAT 98
--- NOTE | 2022-05-14 08:32 | SW/DCPLANNER ---
Addendum entered by Radha Vazquez 05/14/22 12:30: Patient will return to [facility] level of care today. Per Lexy ALVAREZ patient will not require a COVID swab prior to returning. Original Note: This patient currently resides at [facility] level of care. [facility] discharge date is unknown at this time.
[2022-05-14 10:09] VITALS: BMI 33.5
[2022-05-14 10:49] LABS: POC Glucose,Bedside 264 (70-110)
[2022-05-14 11:41] VITALS: BP 128/45; PULSE 65; RESP 18; TEMP 37.1; O2SAT 97
[2022-05-14 11:52] VITALS: O2SAT 95
[2022-05-14 12:00] VITALS: PULSE 64
--- NOTE | 2022-05-14 12:05 | EXP.DC.SUM ---
General Admission date:: 05/12/22 Discharge date: 05/14/22 HPI HPI HPI: 86-year-old female presenting to the emergency department after feeling shortness of breath at her nursing facility. She was also hypoxic. She states that the last month or so she has been having progressively worsening dyspnea orthopnea and lower extremity edema. She has no sick contacts. No specific respiratory problems previously. Complains of shortness of breath primarily and denies any fevers chills nausea or vomiting. She does not smoke. Does not have a history of heart problems that she is aware of. No kidney problems. Denies chest pain Hospital Course Hospital Course Hospital Course: 86-year-old female who presents with progressive dyspnea, orthopnea and lower extremity edema.? She has elevated BNP and pulmonary edema on chest x-ray.? Symptoms and findings most likely consistent with acute congestive heart failure exacerbation. CHF Patient admitted with new oxygen requirement and elevated BNP. Responded really well to diuresis with -2.5 L during hospitalization. Transition to oral potassium to continue diuresis upon discharge. Able to wean off oxygen. Medically stable for discharge back to nursing facility with daily diuretic. Will need repeat labs in a week to monitor electrolytes for possible repletion if develops any abnormalities. Echo obtained during admission, showing normal ejection fraction on preliminary read (greater than 55%). Formal read still pending. Microcytic anemia -Iron studies suggestive of low iron, recommend initiating iron supplementation daily. Appears to be chronic. Diabetes -A1c obtained, 8.9 during admission. Recommend further adjustment to outpatient diabetes regimen. Continued current regimen at discharge. Treated with sliding scale insulin during admission. Hypothyroid -TSH 10.3 during admission. Will increase levothyroxine to 75 mcg daily. Stable for discharge back to her facility. Continue inpatient care [facility]. Exam Data for Last 24 hours Vital signs and Labs for Last 24 Hours: Temp Pulse Resp BP Pulse Ox 98.8 F 65 18 128/45 L 95 05/14/22 11:41 05/14/22 11:41 05/14/22 11:41 05/14/22 11:41 05/14/22 11:52 Laboratory Results - last 24 hr 05/13/22 16:47: POC Glucose 294 H 05/13/22 20:26: POC Glucose 126 H 05/14/22 06:01: POC Glucose 190 H 05/14/22 06:27: WBC 4.8, RBC 4.40, Hgb 9.9 L, Hct 33.0 L, MCV 75.1 L, MCH 22.6 L, MCHC 30.1 L, RDW 17.0, Plt Count 311, MPV 8.9, Neut % (Auto) 59.3, Lymph % (Auto) 27.4, [place] % (Auto) 9.0, Eos % (Auto) 3.6, Baso % (Auto) 0.7, Neut # (Auto) 2.9, Lymph # (Auto) 1.3, [place] # (Auto) 0.4, Eos # (Auto) 0.2, Baso # (Auto) 0.0 05/14/22 06:27: Sodium 141, Potassium 3.6, Chloride 99, Carbon Dioxide 37 H, Anion Gap 8.6, BUN 20 H, Creatinine 0.70, Estimated Creat Clear 57, Estimated GFR 80, Est GFR ( Amer) 96, Glucose 169 H, Calcium 8.3 L, Phosphorus 4.5, Total Bilirubin 0.7, AST 26, ALT 14, Alkaline Phosphatase 81, Total Protein 6.1 L, Albumin 3.8, Globulin 2.3, Albumin/Globulin Ratio 1.7 05/14/22 06:27: Magnesium 1.9 05/14/22 10:38: POC Glucose 264 H I & O for Last 24 hours: Intake & Output 05/11/22 05/12/22 05/13/22 05/14/22 23:59 23:59 23:59 23:59 Intake Total 480 / 580 940 / 940 240 / 240 Output Total 2000 / 3050 1650 / 1950 600 / 600 Balance -1520 / -2470 -710 / -1010 -360 / -360 Weight 88.904 kg 87.146 kg 86 kg Constitutional Constitutional: no acute distress *Routine HEENT Exam Head: Present normocephalic Eye: Present EOMI and PERRL ENT: Present mucous membranes moist *Routine Neck Exam Neck: Present supple; Absent lymphadenopathy *Routine Respiratory Exam Respiratory: Present CTA bilaterally *Routine Cardiovascular Exam Cardiovascular: Present RRR *Routine Abdominal Exam Abdominal: Present soft and normoactive bowel sounds; Absent tenderness *Routine Rectal Exam Patient deferred: visual exam *Routine Ex
--- NOTE | 2022-05-14 13:44 | EXP.CARD.CON ---
History of Present Illness History of Present Illness Consult date: 05/14/22 Requesting physician: Cristopher Garg Consult reason: shortness of breath Chief complaint: soa History of present illness: Hospitalist note: 86-year-old female presenting to the emergency department after feeling shortness of breath at her nursing facility.? She was also hypoxic.? She states that the last month or so she has been having progressively worsening dyspnea orthopnea and lower extremity edema.? She has no sick contacts.? No specific respiratory problems previously.? Complains of shortness of breath primarily and denies any fevers chills nausea or vomiting.? She does not smoke.? Does not have a history of heart problems that she is aware of.? No kidney problems.? Denies chest pain Cardiology note: Mrs. Kaur is an 86 year old white female admitted for acute on chronic HFpEF exacerbation. Patient diuresed over the weekend with IV lasix and has a negative balance of 420 mLs. Reports feels better. Reports soa and LE edema have improved. Denies chest pain. Preliminary Echo shows an EF > 55, DD, and RSVP of 30. PFSH [facility] Disclaimer: The information contained in this section may have been updated after the patient was seen, as this information can be updated by other users. Medical History (Updated 05/14/22 @ 13:51 by Judith Caceres APRN) Diabetes mellitus HLD (hyperlipidemia) HTN (hypertension) Hypothyroid Osteoarthritis Surgical History (Updated 05/12/22 @ 13:48 by Alyce Burns RN) H/O abdominal hysterectomy History of bilateral knee replacement Hx of cholecystectomy Social History (Updated 05/12/22 @ 13:48 by Alyce Burns RN) Smoking Status: Former smoker alcohol intake: never current occupational status: retired Travel in the last 8 weeks: None Review of Systems Review of Systems Review of systems:: pertinent systems reviewed and negative unless documented below *Cardiovascular Cardiovascular: Reports dyspnea on exertion *Respiratory Respiratory: Reports dyspnea on exertion Exam Data for Last 24 hours Vital signs and Labs for Last 24 Hours: Temp Pulse Resp BP Pulse Ox 98.8 F 64 18 128/45 L 95 05/14/22 11:41 05/14/22 12:00 05/14/22 11:41 05/14/22 11:41 05/14/22 11:52 Laboratory Results - last 24 hr 05/13/22 16:47: POC Glucose 294 H 05/13/22 20:26: POC Glucose 126 H 05/14/22 06:01: POC Glucose 190 H 05/14/22 06:27: WBC 4.8, RBC 4.40, Hgb 9.9 L, Hct 33.0 L, MCV 75.1 L, MCH 22.6 L, MCHC 30.1 L, RDW 17.0, Plt Count 311, MPV 8.9, Neut % (Auto) 59.3, Lymph % (Auto) 27.4, [place] % (Auto) 9.0, Eos % (Auto) 3.6, Baso % (Auto) 0.7, Neut # (Auto) 2.9, Lymph # (Auto) 1.3, [place] # (Auto) 0.4, Eos # (Auto) 0.2, Baso # (Auto) 0.0 05/14/22 06:27: Sodium 141, Potassium 3.6, Chloride 99, Carbon Dioxide 37 H, Anion Gap 8.6, BUN 20 H, Creatinine 0.70, Estimated Creat Clear 57, Estimated GFR 80, Est GFR ( Amer) 96, Glucose 169 H, Calcium 8.3 L, Phosphorus 4.5, Total Bilirubin 0.7, AST 26, ALT 14, Alkaline Phosphatase 81, Total Protein 6.1 L, Albumin 3.8, Globulin 2.3, Albumin/Globulin Ratio 1.7 05/14/22 06:27: Magnesium 1.9 05/14/22 10:38: POC Glucose 264 H I & O for Last 24 hours: Intake & Output 05/11/22 05/12/22 05/13/22 05/14/22 23:59 23:59 23:59 23:59 Intake Total 480 / 580 940 / 940 240 / 240 Output Total 2000 / 3050 1650 / 1950 600 / 600 Balance -1520 / -2470 -710 / -1010 -360 / -360 Weight 196 lb 192 lb 2 oz 189 lb 9.561 oz Constitutional Constitutional: no acute distress *Routine Respiratory Exam Respiratory: Present CTA bilaterally and symmetric chest movement *Routine Cardiovascular Exam Cardiovascular: Present RRR, Normal S1 and Normal S2 *Routine Abdominal Exam Abdominal: Present soft and normoactive bowel sounds; Absent tenderness *Routine Extremities Exam Extremities: Present full ROM and normal capillary refill; Absent edema *Routine Skin Exam Skin: Present intact,
--- NOTE | 2022-05-15 14:03 | CARE MANAGER ---
Contacted [facility]. They state patient is doing well and they deny any questions or concerns. CHRISTINA Siddiqi
== END 2022-05-14 15:13 ==
LOC: ER 10:26 → 2ND 11:36
PROVIDERS: Emergency Medicine; Admitting Provider Student in an Organized Health Care Education/Training Program; Emergency Provider Student in an Organized Health Care Education/Training Program; PCP Emergency Medicine; Visit Provider Student in an Organized Health Care Education/Training Program
DX: I50.9 Heart failure, unspecified (principal); M16.11 Unilateral primary osteoarthritis, right hip; E11.9 Type 2 diabetes mellitus without complications; I11.0 Hypertensive heart disease with heart failure; E03.9 Hypothyroidism, unspecified; D64.9 Anemia, unspecified; J96.21 Acute and chronic respiratory failure with hypoxia; Z79.4 Long term (current) use of insulin; Z79.899 Other long term (current) drug therapy; Z20.822 Contact with and (suspected) exposure to COVID-19
CPT/HCPCS: G0378; 36415; 71045; 80053; 81001; 82728; 82803; 82962; 83036; 83540; 83550; 83735; 83880; 84100; 84443; 84484; 85025; 87086; 87088; 87186; 93005; 93306; 99285; C9803; U0003; U0005

== ENCOUNTER 2023-01-03 12:15 | Inpatient (IN) | payer MEDICARE, MEDICAID, SELFPAY ==
[2023-01-03] VITALS (15 sets, daily range): BP systolic 116–168; BP diastolic 49–93; PULSE 58–98; RESP 16–22; TEMP 36.7–37.1; O2SAT 89–99; BMI 40.3; BMI 39.1
--- NOTE | 2023-01-03 12:24 | ECG_ITS ---
APPROVED REPORT Exam: Resting ECG HR:74 bpm ECG Measurements Heart Rate 74 AXES QRSd 100 QRS 4 QT 412 T -7 QTc 439 Conclusion ATRIAL FIBRILLATION NONSPECIFIC ST & T-WAVE ABNORMALITY ABNORMAL RHYTHM ECG UNCONFIRMED REPORT Electronically signed by : Drew Franks MD 01/03/2023 20:56:18
--- NOTE | 2023-01-03 12:36 | XR_ITS ---
FINAL REPORT CLINICAL HISTORY: Shortness of breath, hypoxemia COMPARISON: 05/12/2022 FINDINGS: The heart size is mildly enlarged. The mediastinum is normal. There is no focal infiltrate or edema. There are chronic changes at the lung bases. There are no pleural effusions. There is no pneumothorax. There is no osseous abnormality. IMPRESSION: No acute cardiopulmonary process Reviewed, Interpreted and Dictated by Jose Lawrence MD Transcribed by Kaylah Mckee Authenticated and [facility]
[2023-01-03 12:43] LABS: Basophils % 0.2 % (0.1-2.0); Eosinophils # 0.1 K/mm3 (0.0-0.4); Eosinophils % 0.4 % (0.1-12.0); Hematocrit 26.7 % (37.0-47.0); Hemoglobin 8.2 g/dL (12.2-16.2); Lymphocytes % 8.4 % (10-50); Mean Corpuscular HGB Conc 30.7 g/dL (31.8-35.4); Mean Corpuscular Hemoglobin 19.1 pg (27.0-31.2); Mean Corpuscular Volume 62.2 fl (81-99); Mean Platelet Volume 7.7 fl (7.4-10.4); Monocytes # 0.5 K/mm3 (0.1-1.0); Monocytes % 4.5 % (1.7-9.3); Neutrophils # 10.3 K/mm3 (1.8-7.8); Neutrophils % 86.5 % (37.0-80.0); Platelet Count 333 K/mm3 (142-424); Red Cell Distribution Width 19.7 % (11.5-17.5); White Blood Count 11.9 K/mm3 (4.8-10.8)
--- NOTE | 2023-01-03 12:43 | HMH.EDGENADL ---
Discharge Plan Disposition Patient Disposition: Admitted Chief Complaint: Shortness of Breath/Dyspnea Prescriptions Prescriptions: No Action insulin lispro [Humalog KwikPen Insulin] 100 unit/mL insulin pen 0 ml SQ ACHS amlodipine 10 mg tablet 10 mg PO DAILY atorvastatin 20 mg tablet 20 mg PO HS escitalopram oxalate 10 mg tablet 10 mg PO DAILY glimepiride 1 mg tablet 1 mg PO DAILY memantine 10 mg tablet 10 mg PO BID donepezil 10 mg tablet 10 mg PO DAILY naproxen 375 mg tablet,delayed release (DR/EC) 375 mg PO BID Patient Comments: TAKE ONE TABLET BY MOUTH TWICE DAILY --TAKE WITH FOOD-- acetaminophen-codeine 300-30 mg tablet 1 tab PO 0800,1999 Qty: 60 2RF Rx Instructions: Give 1 tablet twice daily @ 8am & 8pm prednisone 5 mg tablet 5 mg PO DAILY pantoprazole 40 mg tablet,delayed release (DR/EC) 40 mg PO DAILY insulin asp prt-insulin aspart [Novolog Mix 70-30FlexPen U-100] 100 unit/mL (70-30) insulin pen 0 ml SQ . furosemide 40 mg Tablet 40 mg PO DAILY 30 Days Qty: 30 0RF levothyroxine 75 mcg capsule 75 mcg PO DAILY 30 Days Qty: 30 0RF Referrals Follow up/Referrals: Santi Dee MD [Primary Care Provider] - See instructions Clinical Impressions Clinical Impression: COPD exacerbation CHF (congestive heart failure) Qualifiers: Heart failure type: other Qualified Code(s): I50.9 - Heart failure, unspecified Discharge ED Provider: Rober Crabtree General Adult HPI General Chief complaint: Shortness of Breath/Dyspnea Stated complaint: Shortness of Breath Time Seen by Provider: 01/03/23 12:22 Mode of Arrival: EMS Source of Information: EMS Limitations: No Limitations Description of Symptoms (Recalled from ER Triage Doc. by RN): EMS states they were called to the facility for a patient transfer when it was seen that patient had extreme shortness of breath. Reports that the patient was recently put on Lasix and has since ran out of her prescription. Patient is short of breath. History of Present Illness HPI narrative: 87-year-old female with history of hypertension, hyperlipidemia, diabetes, COPD on home oxygen, CAD status post stenting presenting with shortness of breath. EMS was called to the facility when she was acting short of breath, patient allegedly placed on Lasix recently. She also states that she has been coughing more and coughing up phlegm, but no fevers or chills, nausea or vomiting, confusion, Or any other concerns at this time Related Data Home Medications Medication Instructions Recorded Confirmed amlodipine 10 mg tablet 10 mg PO DAILY High blood pressure 03/27/22 06/19/22 atorvastatin 20 mg tablet 20 mg PO HS Cholesterol 03/27/22 06/19/22 donepezil 10 mg tablet 10 mg PO DAILY dementia 03/27/22 06/19/22 escitalopram oxalate 10 mg tablet 10 mg PO DAILY Depression 03/27/22 06/19/22 glimepiride 1 mg tablet 1 mg PO DAILY Diabetes 03/27/22 06/19/22 insulin lispro 100 unit/mL 0 ml SQ ACHS Diabetes 03/27/22 06/19/22 subcutaneous pen (Humalog KwikPen (U-100) Insulin) memantine 10 mg tablet 10 mg PO BID dementia 03/27/22 06/19/22 naproxen 375 mg tablet,delayed 375 mg PO BID Pain 03/27/22 06/19/22 release pantoprazole 40 mg tablet,delayed 40 mg PO DAILY Acid reflux 05/12/22 06/19/22 release prednisone 5 mg tablet 5 mg PO DAILY inflammation 05/12/22 06/19/22 insulin aspar prot-insulin aspart 0 ml SQ . Diabetes 05/13/22 06/19/22 100 unit/mL (70-30) subcutaneous pen (Novolog Mix 70-30FlexPen U-100) Previous Rx's Medication Instructions Recorded furosemide 40 mg tablet 40 mg PO DAILY 30 days #30 tabs 05/14/22 levothyroxine 75 mcg capsule 75 mcg PO DAILY 30 days #30 caps 05/14/22 acetaminophen 300 mg-codeine 30 mg 1 tab PO 0800,1999 pain #60 tabs 11/26/22 tablet Allergies Allergy/AdvReac Type Severity Reaction Status Date / Time morphine Allergy Intermediate ITCHING Veri
[2023-01-03 12:44] LABS: MANUAL DIFFERENTIAL MANUAL DIFFERENTIAL (MANUAL DIFF)
[2023-01-03 12:46] LABS: Chloride 101 mmol/L (98-107); Potassium 4.1 mmoL/L (3.5-5.1); Sodium 138 mmol/L (136-145)
[2023-01-03 12:48] LABS: Alanine Aminotransferase 24 U/L (12-78); Alkaline Phosphatase 81 U/L (38-126); Aspartate Amino Transferase 32 U/L (14-36); Bilirubin,Total 0.7 mg/dl (0.2-1.3); Blood Urea Nitrogen 18 mg/dl (7-17); Creatinine Clearance Estimated 74 mL/min (50-200); Estimated Glomerular Filt Rate 68 ml/min (>60); GFR (African American) 82 ML/MIN (>60)
[2023-01-03 12:49] LABS: Albumin Level 4.2 g/dl (3.5-5.0); Albumin/Globulin Ratio 1.4 (1.1-1.8); Anion Gap 9.1 mEq/L (5-15); Calcium 8.5 mg/dl (8.4-10.2); Carbon Dioxide 32 mmol/L (22.0-30.0); Creatine Kinase 107 U/L (30-135); Globulin 2.9 g/dL (1.3-3.2); Glucose 170 mg/dl (74-100); Total Protein,Serum 7.1 g/dl (6.3-8.2)
[2023-01-03 12:57] LABS: VBG Base Excess 1.7 mmol/L (-2.4-2.3); VBG HCO3 27.2 mmol/L (23-30); VBG Oxygen Saturation 76.8 % (50-70); VBG PCO2 49.9 mmol/L (35-51); VBG PH 7.36 mmol/L (7.31-7.41); VBG PO2 42.5 mmol/L (28-40); VBG Total CO2 28.8 mmol/L (23-27)
[2023-01-03 12:58] LABS: Anisocytosis 1+; Hypochromasia 2+; Lymphocytes % 9 % (10-50); Monocytes % 4 % (2-9); NT Pro Brain Natriuretic Pep. 4180 pg/mL (0-450); Neutrophils % 87 % (42-76); Platelet Estimate Normal; Total Cells Counted 100
[2023-01-03 12:59] LABS: Microcytosis 2+; Ovalocytes 1+
[2023-01-03 13:02] LABS: Troponin I < 0.01 ng/ml (0.00-0.034)
--- NOTE | 2023-01-03 14:55 | PC.NURSE ---
Pt wheeled to bathroom, patient got very short of breath going back to room/. Initial sat before being put on O2 was 85%, back up to 90% + after being put back on o2.
[2023-01-03 14:56] LABS: Coronavirus 19, PCR Not Detected (NotDetected); Influenza A, PCR Not Detected (NotDetected); Influenza B, PCR Not Detected (NotDetected)
--- NOTE | 2023-01-03 15:16 | PC.NURSE ---
Care Management notified of admission.
--- NOTE | 2023-01-03 15:31 | SW/DCPLANNER ---
Addendum entered by Radha Vazquez 01/04/23 11:04: I have updated Lexy pradhan/ [facility] that pending no setbacks patient will return tomorrow 01/05/23. Addendum entered by Radha Vazquez 01/04/23 07:54: Updated patient information has been faxed to Lexy pradhan/ [facility]. Original Note: This patient currently resides at [facility] level of care. I will continue to follow up w/ Lexy until patient is medically stable for discharge. Discharge date is unknown at this time.
--- NOTE | 2023-01-03 15:44 | PC.NURSE ---
Report called to CHRISTINA Fitch on Med Surg.
[2023-01-03 16:25] LABS: Troponin I 0.02 ng/ml (0.00-0.034)
--- NOTE | 2023-01-03 16:42 | ECG_ITS ---
APPROVED REPORT Exam: Resting ECG HR:139 bpm ECG Measurements Heart Rate 139 AXES QRSd 106 QRS 9 QT 315 T 98 QTc 396 Conclusion ATRIAL FIBRILLATION WITH RAPID VENTRICULAR RESPONSE WITH ABERRANT CONDUCTION OR VENTRICULAR PREMATURE COMPLEXES POSSIBLE ANTERIOR MYOCARDIAL INFARCTION , PROBABLY OLD [30 ms Q WAVE IN V3/V4, OR R < 0.2 mV IN V4] ABNORMAL RHYTHM ECG UNCONFIRMED REPORT Electronically signed by : Drew Franks MD 01/04/2023 16:10:29
--- NOTE | 2023-01-03 18:17 | PC.NURSE ---
pt is pleasantly confused, alert to self and place and forgets things quickly. pt tore off heart monitor and cont pulse ox. reeducated on the need for heart monitor. afib per tele. pt had an episode of afib rvr treated with one dose lopressor, hr now 80s. pt stated feeling tired, assisted to bed x1 assist, does well transferring. pt resting well at this time. bed alarm on for pt safety and cb within reach.
--- NOTE | 2023-01-03 18:28 | EXP.HP ---
History of Present Illness *Admission Date: 01/03/23 *Reason for visit:: hypoxia *History of present illness: Patient is a 87-[facility]-old female [facility] who presented to hospital due to possible confusion, patient was found to be confused as well as patient was found hypoxic, EMS was called patient was brought to the hospital. Patient has dementia, patient does not remember the sequence of events. Patient has past medical history of diabetes mellitus hypertension COPD CHF. [facility] Disclaimer: The information contained in this section may have been updated after the patient was seen, as this information can be updated by other users. Medical History Diabetes mellitus HLD (hyperlipidemia) HTN (hypertension) Hypothyroid Osteoarthritis Surgical History H/O abdominal hysterectomy History of bilateral knee replacement Hx of cholecystectomy Social History (Updated 01/03/23 @ 16:26 by Anjelica Ngo RN) Smoking Status: Never smoker alcohol intake: never current occupational status: retired Travel in the last 8 weeks: None Review of Systems Review of Systems Review of systems:: pertinent systems reviewed and negative unless documented below Meds Home Medications and Allergies Home Medications Medication Instructions Recorded Confirmed Type amlodipine 10 mg tablet 10 mg PO DAILY High blood pressure 03/27/22 01/03/23 History atorvastatin 20 mg tablet 20 mg PO HS Cholesterol 03/27/22 01/03/23 History donepezil 10 mg tablet 10 mg PO DAILY dementia 03/27/22 01/03/23 History escitalopram oxalate 10 mg tablet 10 mg PO DAILY Depression 03/27/22 01/03/23 History glimepiride 1 mg tablet 1 mg PO DAILY Diabetes 03/27/22 01/03/23 History memantine 10 mg tablet 10 mg PO BID dementia 03/27/22 01/03/23 History pantoprazole 40 mg tablet,delayed 40 mg PO DAILY Acid reflux 05/12/22 01/03/23 History release prednisone 5 mg tablet 5 mg PO DAILY inflammation 05/12/22 01/03/23 History insulin aspar prot-insulin aspart 0 ml SQ . Diabetes 05/13/22 01/03/23 History 100 unit/mL (70-30) subcutaneous pen (Novolog Mix 70-30FlexPen U-100) levothyroxine 75 mcg capsule 75 mcg PO DAILY 30 days #30 caps 05/14/22 01/03/23 Rx acetaminophen 300 mg-codeine 30 mg 1 tab PO 08,1999 pain #60 tabs 11/26/22 01/03/23 Rx tablet New Prescriptions to Start Prescriptions: Allergies Allergy/AdvReac Type Severity Reaction Status Date / Time morphine Allergy Intermediate ITCHING Verified 06/19/22 11:15 Penicillins Allergy Intermediate SWELLING Verified 06/19/22 11:15 [id number] Reductase Allergy Intermediate ITCHING/SWE Verified 06/19/22 11:15 Inhibitor LLING promethazine [From Phenergan] Allergy Verified 01/03/23 12:21 famotidine AdvReac Intermediate Chest Pain Verified 06/19/22 11:15 tuberculin, purified protein AdvReac Intermediate REACTOR Verified 06/19/22 11:15 deriva Exam Data for Last 24 hours Vital signs and Labs for Last 24 Hours: Temp Pulse Resp BP Pulse Ox O2 Del Method O2 Flow Rate 98.0 F 80 16 138/49 L 94 L Nasal Cannula 3 01/03/23 16:16 01/03/23 16:16 01/03/23 16:16 01/03/23 16:16 01/03/23 16:00 01/03/23 18:15 01/03/23 18:15 Laboratory Results - last 24 hr 01/03/23 12:10: WBC 11.9 H, RBC 4.30, Hgb 8.2 L, Hct 26.7 L, MCV 62.2 L, MCH 19.1 L, MCHC 30.7 L, RDW 19.7 H, Plt Count 333, MPV 7.7, Neut % (Auto) 86.5 H, Lymph % (Auto) 8.4 L, [place] % (Auto) 4.5, Eos % (Auto) 0.4, Baso % (Auto) 0.2, Neut # (Auto) 10.3 H, Lymph # (Auto) 1.0, [place] # (Auto) 0.5, Eos # (Auto) 0.1, Baso # (Auto) 0.0, Total Counted 100, Neutrophils % (Manual) 87 H, Lymphocytes % (Manual) 9 L, Monocytes % (Manual) 4, Platelet Estimate Normal, Hypochromasia 2+, Anisocytosis 1+, Microcytosis 2+, Ovalocytes 1+, Sodium 138, Potassium 4.1, Chloride 101, Carbon Dioxide 32 H, Anion Gap 9.1, BUN 18 H,
--- NOTE | 2023-01-03 18:39 | PC.NURSE ---
ct just called to get pt. pt is currently asleep, resting well, this nurse requested to wait till next time pt wakes up to take down to ct due to pt worrying and fidgeting with monitors, o2, etc. okay per car, will let oncoming nurse know.
[2023-01-03 19:27] LABS: Troponin I 0.02 ng/ml (0.00-0.034)
--- NOTE | 2023-01-03 20:14 | HMH.ITSTN ---
per Negro, attempted to do CT. patient refused scan due to stating inable to breathe lying down.
[2023-01-03 20:51] LABS: Thyroid Stimulating Hormone 1.15 uIU/mL (0.465-4.68)
[2023-01-04] VITALS (11 sets, daily range): BP systolic 126–148; BP diastolic 51–78; PULSE 64–95; RESP 16–20; TEMP 36.4–37.6; O2SAT 91–97; BMI 36.9
--- NOTE | 2023-01-04 03:24 | PC.NURSE ---
Patient anxious during the beginning of shift, breathing treatment given and patient stated she felt better. Patient taken down for ct scan but not able to complete as patient stated she felt sob. Educated patient on importance of giving IV lasix and patient agreed to take medication. Patient able to sleep for rest of shift. VS stable and patient remained on 4LNC. Lung sounds diminished on ascultation.
[2023-01-04 05:32] LABS: POC Glucose,Bedside 333 (70-110)
[2023-01-04 05:39] LABS: Basophils % 0.1 % (0.1-2.0); Eosinophils % 0.1 % (0.1-12.0); Hematocrit 25.4 % (37.0-47.0); Hemoglobin 7.8 g/dL (12.2-16.2); Lymphocytes # 0.5 K/mm3 (0.7-4.5); Lymphocytes % 4.9 % (10-50); Mean Corpuscular HGB Conc 30.6 g/dL (31.8-35.4); Mean Corpuscular Volume 62.2 fl (81-99); Mean Platelet Volume 7.5 fl (7.4-10.4); Monocytes # 0.2 K/mm3 (0.1-1.0); Monocytes % 1.4 % (1.7-9.3); Neutrophils # 10.2 K/mm3 (1.8-7.8); Neutrophils % 93.4 % (37.0-80.0); Platelet Count 312 K/mm3 (142-424); Red Blood Count 4.08 M/mm3 (4.20-5.40); Red Cell Distribution Width 20.1 % (11.5-17.5); White Blood Count 10.9 K/mm3 (4.8-10.8)
[2023-01-04 05:47] LABS: Anion Gap 11.3 mEq/L (5-15); Blood Urea Nitrogen 24 mg/dl (7-17); Calcium 8.7 mg/dl (8.4-10.2); Carbon Dioxide 29 mmol/L (22.0-30.0); Chloride 100 mmol/L (98-107); Creatinine Clearance Estimated 69 mL/min (50-200); Estimated Glomerular Filt Rate 60 ml/min (>60); GFR (African American) 72 ML/MIN (>60); Glucose 295 mg/dl (74-100); Potassium 4.3 mmoL/L (3.5-5.1); Sodium 136 mmol/L (136-145)
[2023-01-04 05:55] LABS: MANUAL DIFFERENTIAL MANUAL DIFFERENTIAL (MANUAL DIFF)
--- NOTE | 2023-01-04 06:00 | CA_ITS ---
APPROVED REPORT EXAM: Comprehensive 2D, Doppler, and color-flow Echocardiogram Hand Surgeon: Joann Nails RDCS Ht: 5 ft 7 in Wt: 249lbs BSA: 2.22 BP: 168/56 mmHg Indications: CHF,AF,HTN,HLP,SOA 2D Dimensions LVOT 2.12 cm (M/F) 1.5-2.5 LA Volume 73.10 mL LA Volume Index 32.93 mL/m2 (M/F) 16-34 M-Mode Dimensions RVDd 1.70 cm (0.9-2.6) LA Diam 4.12 cm (1.9-4.0) LVDd 5.49 cm (3.5-5.7) Ao Diam 2.90 cm (2.0-3.7) LVDs 4.65 cm (3.5-5.7) IVSd 1.32 cm (0.6-1.1) PWd 0.99 cm (0.6-1.1) EF (Teich) 32.00% FS 15.30% EDV (Teich) 146.80 mL ESV (Teich) 99.80 mL LV Diastology E Decel Time 167.00 (160-240 msec) E/A Ratio 0.9 MED E' 6.30 (< 7 cm/sec) E'/MED E' Ratio 16.86 (>14) LAT E' 6.20 (<10 cm/sec) E/LAT E' Ratio 17.13 (>14) Aortic Valve LVOT Max 124.00 (70-110 cm/s) LVOT VTI 24.88 cm AoV Peak Herve. 264.00 (50-130 cm/s) AO Peak GR. 27.80 mmHg AO Mean GR. 13.60 (<5 mmHg) AO VTI 51.40 (18-25 cm) BERTA (VTI) 1.71 (2.5-4.5 cm2) Mitral Valve MV E Max Herve. 106.00 (40-130 cm/s) MV A Velocity 118.00 (40-130 cm/s) E/A Ratio 0.90 MV Decel. Time 167.00 (160-240 ms) MV PHT 49.00 ms Left Ventricle The left ventricle is normal size. Left ventricular systolic function is borderline. There is increased LV wall thickness. Borderline global hypokinesis is present. Grade 2 diastolic dysfunction is present. LVEF is 50%. Right Ventricle Right ventricle is mildly dilated. Right ventricle is mildly hypokinetic. Atria Left atrium is mildly dilated. Right atrium is mildly dilated. Aortic Valve The aortic valve is moderately thickened. Mild aortic stenosis. Peak velocity 2.7 m/s. Mean AV gradient is 14 mmHg. Max AV gradient is 29 mmHg. BERTA is 2.6 cm2 by continuity equation. Mild aortic regurgitation. Mitral Valve Moderate mitral annular calcification. The mitral valve leaflets are thickened. Mild mitral stenosis (mean MV gradient 6 mmHg at HR 70 bpm). Mild mitral regurgitation. Tricuspid Valve The tricuspid valve leaflets are thin and pliable. Mild tricuspid regurgitation. RVSP is normal. Pulmonic Valve The pulmonary valve is normal in structure. Mild pulmonic regurgitation. Great Vessels The aortic root is normal in size. IVC is normal in size and collapses >50% with inspiration. Pericardium There is no pericardial effusion. Other Information Study Quality: Technically Difficult Conclusion Technically difficult study due to poor accoustic windows. Low-normal LV systolic function (LVEF 50%). Grade 2 diastolic dysfunction. Mildly dilated RV with mild reduction in RV systolic function. Mild , mild AI. Mild MS, mild MR. Electronically signed by : Virginie Cheung MD 01/06/2023 22:37:04
[2023-01-04 06:36] LABS: Anisocytosis 2+; Hypochromasia 2+; Lymphocytes % 6 % (10-50); Microcytosis 2+; Monocytes % 2 % (2-9); Neutrophils % 91 % (42-76); Ovalocytes 2+; Platelet Estimate Normal; Total Cells Counted 100
--- NOTE | 2023-01-04 07:44 | HMH.PHAINT1 ---
Pharmacy Intervention Comments: home medication list clarified using list from intermediate
--- NOTE | 2023-01-04 08:00 | CT_ITS ---
FINAL REPORT TECHNIQUE: multiple axial CT images were performed from the foramen magnum to the vertex without enhancement. CLINICAL HISTORY: AMS FINDINGS: There is mild age-appropriate atrophy and proportional ventriculomegaly. There is patchy decreased attenuation in the region of the deep white matter consistent with chronic ischemia. There are small foci of encephalomalacia in the right posterior parietal and right occipital lobes, probably due to sequela of prior infarcts. There is no evidence of hemorrhage. No masses are identified. No extra-axial fluid is seen. The sinuses are normal. IMPRESSION: Atrophy and chronic changes without acute process. Reviewed, Interpreted and Dictated by Jose Lawrence MD Transcribed by Penny Joseph Authenticated and [facility]
--- NOTE | 2023-01-04 10:12 | EXP.PULM.CON ---
History of Present Illness History of present illness: Ms. Kaur is a 87-year-[facility] with reported history of diabetes mellitus hypertension, COPD, no significant smoking history, not using any inhalers at baseline CHF was presented with confusion hypoxia and pulmonary was called for further evaluation and management. [facility] Disclaimer: The information contained in this section may have been updated after the patient was seen, as this information can be updated by other users. Medical History Diabetes mellitus HLD (hyperlipidemia) HTN (hypertension) Hypothyroid Osteoarthritis Surgical History H/O abdominal hysterectomy History of bilateral knee replacement Hx of cholecystectomy Social History (Updated 01/03/23 @ 16:26 by Anjelica Ngo RN) Smoking Status: Never smoker alcohol intake: never current occupational status: retired Travel in the last 8 weeks: None Review of Systems Constitutional Constitutional: Reports anorexia, Reports body ache(s) and Reports fatigue Eyes Eyes: Denies eye discharge, Denies dry eyes, Denies irritation and Denies itchy eyes ENT Ears, Nose, Mouth, and Throat: Denies epistaxis, Denies facial pain, Denies lip swelling and Denies throat swelling *Cardiovascular Cardiovascular: Reports dyspnea, Reports dyspnea on exertion, Reports leg edema and Reports orthopnea *Respiratory Respiratory: Reports chest congestion, Reports cough, Reports dyspnea, Reports dyspnea on exertion, Denies excessive phlegm production and Reports wheezing *Gastrointestinal Gastrointestinal: Denies abdominal pain, Denies belching and Denies cramping *Musculoskeletal Musculoskeletal: Reports back pain, Reports myalgias and Reports other (No small joint swelling or Pain) Psychiatric Psychiatric: Denies homicidal ideation and Denies suicidal ideation Endocrine Endocrine: Reports fatigue and Denies heat intolerance Hematologic/Lymphatic Hematologic/Lymphatic: Denies easy bleeding and Denies lymphadenopathy Allergic/Immunologic Allergic/Immunologic: Denies itchy eyes, Denies lip swelling, Denies throat swelling and Reports wheezing Pulmonology Exam Inpatient Vital signs and Labs for Last 24 Hours: Temp Pulse Resp BP Pulse Ox O2 Del Method O2 Flow Rate 98.9 F 85 20 148/66 H 97 Nasal Cannula 4 01/04/23 08:00 01/04/23 08:00 01/04/23 08:00 01/04/23 08:00 01/04/23 08:00 01/04/23 09:55 01/04/23 09:55 Laboratory Results - last 24 hr 01/03/23 12:10: WBC 11.9 H, RBC 4.30, Hgb 8.2 L, Hct 26.7 L, MCV 62.2 L, MCH 19.1 L, MCHC 30.7 L, RDW 19.7 H, Plt Count 333, MPV 7.7, Neut % (Auto) 86.5 H, Lymph % (Auto) 8.4 L, [place] % (Auto) 4.5, Eos % (Auto) 0.4, Baso % (Auto) 0.2, Neut # (Auto) 10.3 H, Lymph # (Auto) 1.0, [place] # (Auto) 0.5, Eos # (Auto) 0.1, Baso # (Auto) 0.0, Total Counted 100, Neutrophils % (Manual) 87 H, Lymphocytes % (Manual) 9 L, Monocytes % (Manual) 4, Platelet Estimate Normal, Hypochromasia 2+, Anisocytosis 1+, Microcytosis 2+, Ovalocytes 1+, Sodium 138, Potassium 4.1, Chloride 101, Carbon Dioxide 32 H, Anion Gap 9.1, BUN 18 H, Creatinine 0.80, Estimated Creat Clear 74, Estimated GFR 68, Est GFR ( Amer) 82, Glucose 170 H, Calcium 8.5, Total Bilirubin 0.7, AST 32, ALT 24, Alkaline Phosphatase 81, Total Creatine Kinase 107, Troponin I < 0.01, NT-Pro-B Natriuret Pep 4180 H, Total Protein 7.1, Albumin 4.2, Globulin 2.9, Albumin/Globulin Ratio 1.4, Procalcitonin 0.070 01/03/23 12:37: VBG pH 7.36, VBG pCO2 49.9, VBG pO2 42.5 H, VBG HCO3 27.2, VBG Total CO2 28.8 H, VBG O2 Saturation 76.8 H, VBG Base Excess 1.7 01/03/23 14:50: SARS-CoV-2 (PCR) Not detected, Influenza A Untype (PCR) Not detected, Influenza Type B (PCR) Not detected 01/03/23 15:47: Troponin I 0.02 01/03/23 18:53: Troponin I 0.02, TSH 1.15 01/04/23 05:17: POC Glucose 333 H* 01/04/23 05:19: WBC 10.9 H, RBC 4.08 L, Hgb
[2023-01-04 10:35] LABS: Iron 19 ug/dL (37-170)
[2023-01-04 10:35] LABS: POC Glucose,Bedside 248 (70-110)
--- NOTE | 2023-01-04 11:01 | PC.NURSE ---
courtesy tech note: patient rounded on. assisted patient up in bed per request. no further verbalized requests at this time. call light w/in reach.
[2023-01-04 11:13] LABS: Total Iron Binding Capacity 376 ug/dL (265-497)
--- NOTE | 2023-01-04 12:19 | EXP.PN ---
Subjective *Date: 01/04/23 *Time: 12:29 Interval history: Patient was seen and evaluated at the bedside. denied chest pain, shortness of breath, nausea, vomiting, abdominal pain. Patient does not have any complaints at this time. she is on nasal canula 4L Exam Data for Last 24 hours Vital signs and Labs for Last 24 Hours: Temp Pulse Resp BP Pulse Ox O2 Del Method O2 Flow Rate 98.9 F 78 20 148/66 H 94 L Nasal Cannula 5 01/04/23 08:00 01/04/23 12:06 01/04/23 08:00 01/04/23 08:00 01/04/23 12:07 01/04/23 12:07 01/04/23 12:07 Laboratory Results - last 24 hr 01/03/23 12:10: WBC 11.9 H, RBC 4.30, Hgb 8.2 L, Hct 26.7 L, MCV 62.2 L, MCH 19.1 L, MCHC 30.7 L, RDW 19.7 H, Plt Count 333, MPV 7.7, Neut % (Auto) 86.5 H, Lymph % (Auto) 8.4 L, [place] % (Auto) 4.5, Eos % (Auto) 0.4, Baso % (Auto) 0.2, Neut # (Auto) 10.3 H, Lymph # (Auto) 1.0, [place] # (Auto) 0.5, Eos # (Auto) 0.1, Baso # (Auto) 0.0, Total Counted 100, Neutrophils % (Manual) 87 H, Lymphocytes % (Manual) 9 L, Monocytes % (Manual) 4, Platelet Estimate Normal, Hypochromasia 2+, Anisocytosis 1+, Microcytosis 2+, Ovalocytes 1+, Sodium 138, Potassium 4.1, Chloride 101, Carbon Dioxide 32 H, Anion Gap 9.1, BUN 18 H, Creatinine 0.80, Estimated Creat Clear 74, Estimated GFR 68, Est GFR ( Amer) 82, Glucose 170 H, Calcium 8.5, Total Bilirubin 0.7, AST 32, ALT 24, Alkaline Phosphatase 81, Total Creatine Kinase 107, Troponin I < 0.01, NT-Pro-B Natriuret Pep 4180 H, Total Protein 7.1, Albumin 4.2, Globulin 2.9, Albumin/Globulin Ratio 1.4, Procalcitonin 0.070 01/03/23 12:37: VBG pH 7.36, VBG pCO2 49.9, VBG pO2 42.5 H, VBG HCO3 27.2, VBG Total CO2 28.8 H, VBG O2 Saturation 76.8 H, VBG Base Excess 1.7 01/03/23 14:50: SARS-CoV-2 (PCR) Not detected, Influenza A Untype (PCR) Not detected, Influenza Type B (PCR) Not detected 01/03/23 15:47: Troponin I 0.02 01/03/23 18:53: Troponin I 0.02, TSH 1.15 01/04/23 05:17: POC Glucose 333 H* 01/04/23 05:19: WBC 10.9 H, RBC 4.08 L, Hgb 7.8 L, Hct 25.4 L, MCV 62.2 L, MCH 19.0 L, MCHC 30.6 L, RDW 20.1 H, Plt Count 312, MPV 7.5, Neut % (Auto) 93.4 H, Lymph % (Auto) 4.9 L, [place] % (Auto) 1.4 L, Eos % (Auto) 0.1, Baso % (Auto) 0.1, Neut # (Auto) 10.2 H, Lymph # (Auto) 0.5 L, [place] # (Auto) 0.2, Eos # (Auto) 0.0, Baso # (Auto) 0.0, Total Counted 100, Neutrophils % (Manual) 91 H, Band Neutrophils % 1.0, Lymphocytes % (Manual) 6 L, Monocytes % (Manual) 2, Platelet Estimate Normal, Hypochromasia 2+, Anisocytosis 2+, Microcytosis 2+, Ovalocytes 2+, Sodium 136, Potassium 4.3, Chloride 100, Carbon Dioxide 29, Anion Gap 11.3, BUN 24 H D, Creatinine 0.90, Estimated Creat Clear 69, Estimated GFR 60, Est GFR ( Amer) 72, Glucose 295 H D, Calcium 8.7, Iron 19 L, TIBC 376, Iron Saturation 5.15475 L 01/04/23 10:27: POC Glucose 248 H I & O for Last 24 hours: Intake & Output 01/01/23 01/02/23 01/03/2301/04/23 23:59 23:59 23:59 23:59 Intake Total 470 / 470 Output Total 500 / 600 300 / 300 Balance -30 / -130 -300 / -300 Weight 113.3 kg 106.821 kg Constitutional Constitutional: no acute distress *Routine HEENT Exam Head: Present normocephalic Eye: Present EOMI and PERRL ENT: Present mucous membranes moist *Routine Neck Exam Neck: Present supple; Absent lymphadenopathy *Routine Respiratory Exam Respiratory: Present diminished air movement *Routine Cardiovascular Exam Cardiovascular: Present RRR *Routine Abdominal Exam Abdominal: Present soft and normoactive bowel sounds; Absent tenderness *Routine Extremities Exam Extremities: Absent cyanosis, clubbing or edema *Routine Skin Exam Skin: Present warm; Absent rash *Routine Neurological Exam Neurological: Present alert and oriented X3 Assessment and Plan *Assessment and plan (1) CHF (congestive heart failure): Status: Acute Qualifiers: Heart failure type: other Qualified Code(s): I50.9 - Heart failure, unspecified Category: Medical Code(s): I50.9 - Heart failure, un
--- NOTE | 2023-01-04 12:49 | EXP.CARD.CON ---
History of Present Illness History of Present Illness Consult date: 01/04/23 Requesting physician: Jelly Brewer Consult reason: atrial fibrillation Chief complaint: SOA/AMS History of present illness: 87-year-old female with dementia who resides in [facility]. No family is available at time of consult. At baseline has COPD with history of HFpEF-Echo April 2022 showed biatrial enlargement, mild LVH, EF 55% grade 2 diastolic dysfunction mild RV dilation and mild AI/AAS. Patient is poor historian, additional history gathered from chart. She came from [facility] facility with altered mental status and shortness of breath. She has been diagnosed with COPD exacerbation and new diagnosis of A-fib with RVR, rate 140 bpm on arrival. At the time of my consult this morning patient had converted to sinus rhythm on her own. She denies chest pain and palpitations but she remains wheezy and she is on 4 L/min O2 nasal cannula, doxycycline, steroids, nebulizer. Her chest x-ray shows no acute cardiopulmonary process, proBNP 4180. She also has microcytic anemia with hemoglobin 7.8-was 9.9 in April of this year. Diabetic with A1c 8.9. Patient denies history of CAD and CVA. [facility] Disclaimer: The information contained in this section may have been updated after the patient was seen, as this information can be updated by other users. Medical History Diabetes mellitus HLD (hyperlipidemia) HTN (hypertension) Hypothyroid Osteoarthritis Surgical History H/O abdominal hysterectomy History of bilateral knee replacement Hx of cholecystectomy Social History (Updated 01/03/23 @ 16:26 by Anjelica Ngo RN) Smoking Status: Never smoker alcohol intake: never current occupational status: retired Travel in the last 8 weeks: None Review of Systems Constitutional Constitutional: Reports fatigue and Reports weakness Eyes Eyes: Denies loss of vision ENT Ears, Nose, Mouth, and Throat: Denies hearing loss and Denies vertigo *Cardiovascular Cardiovascular: Denies chest pain, Reports dyspnea and Denies syncope *Respiratory Respiratory: Denies cough, Reports dyspnea and Reports wheezing *Gastrointestinal Gastrointestinal: Denies change in stool character, Denies nausea and Denies vomiting *Musculoskeletal Musculoskeletal: Denies muscle weakness Integumentary/Breasts Skin/Breast: Denies changing lesions *Neurologic Neurologic: Denies loss of vision, Denies syncope, Denies vertigo and Reports weakness Endocrine Endocrine: Reports fatigue Allergic/Immunologic Allergic/Immunologic: Reports wheezing Exam Data for Last 24 hours Vital signs and Labs for Last 24 Hours: Temp Pulse Resp BP Pulse Ox O2 Del Method O2 Flow Rate 99.6 F 78 20 146/61 H 94 L Nasal Cannula 5 01/04/23 12:00 01/04/23 12:06 01/04/23 12:00 01/04/23 12:00 01/04/23 12:07 01/04/23 12:07 01/04/23 12:07 Laboratory Results - last 24 hr 01/03/23 12:10: Total Counted 100, Neutrophils % (Manual) 87 H, Lymphocytes % (Manual) 9 L, Monocytes % (Manual) 4, Platelet Estimate Normal, Hypochromasia 2+, Anisocytosis 1+, Microcytosis 2+, Ovalocytes 1+, Carbon Dioxide 32 H, Anion Gap 9.1, BUN 18 H, Creatinine 0.80, Estimated Creat Clear 74, Estimated GFR 68, Est GFR ( Amer) 82, Glucose 170 H, Calcium 8.5, Total Bilirubin 0.7, AST 32, ALT 24, Alkaline Phosphatase 81, Total Creatine Kinase 107, Troponin I < 0.01, NT-Pro-B Natriuret Pep 4180 H, Total Protein 7.1, Albumin 4.2, Globulin 2.9, Albumin/Globulin Ratio 1.4, Procalcitonin 0.070 01/03/23 12:37: VBG pH 7.36, VBG pCO2 49.9, VBG pO2 42.5 H, VBG HCO3 27.2, VBG Total CO2 28.8 H, VBG O2 Saturation 76.8 H, VBG Base Excess 1.7 01/03/23 14:50: SARS-CoV-2 (PCR) Not detected, Influenza A Untype (PCR) Not detected, Influenza Type B (PCR) Not detected 01/03/23 15:47: Troponin I 0.02 01/03/23 18:53: Troponin I 0
[2023-01-04 13:33] LABS: Ferritin 11.4 ng/ml (11.1-264)
[2023-01-04 16:19] LABS: POC Glucose,Bedside 320 (70-110)
[2023-01-04 20:34] LABS: POC Glucose,Bedside 118 (70-110)
[2023-01-05] VITALS (10 sets, daily range): BP systolic 123–153; BP diastolic 48–68; PULSE 58–82; RESP 18–22; TEMP 36.6–37.2; O2SAT 90–93; BMI 37.3
[2023-01-05 06:21] LABS: POC Glucose,Bedside 152 (70-110)
[2023-01-05 07:42] LABS: Basophils % 0.1 % (0.1-2.0); Eosinophils % 0.1 % (0.1-12.0); Hematocrit 25.4 % (37.0-47.0); Hemoglobin 7.7 g/dL (12.2-16.2); Lymphocytes # 1.4 K/mm3 (0.7-4.5); Lymphocytes % 7.7 % (10-50); Mean Corpuscular HGB Conc 30.3 g/dL (31.8-35.4); Mean Corpuscular Hemoglobin 18.9 pg (27.0-31.2); Mean Corpuscular Volume 62.4 fl (81-99); Mean Platelet Volume 7.9 fl (7.4-10.4); Monocytes # 0.8 K/mm3 (0.1-1.0); Monocytes % 4.3 % (1.7-9.3); Neutrophils # 15.7 K/mm3 (1.8-7.8); Neutrophils % 87.8 % (37.0-80.0); Platelet Count 319 K/mm3 (142-424); Red Blood Count 4.07 M/mm3 (4.20-5.40); Red Cell Distribution Width 20.1 % (11.5-17.5); White Blood Count 17.8 K/mm3 (4.8-10.8)
[2023-01-05 07:49] LABS: MANUAL DIFFERENTIAL MANUAL DIFFERENTIAL (MANUAL DIFF)
[2023-01-05 08:07] LABS: Anion Gap 12.4 mEq/L (5-15); Blood Urea Nitrogen 31 mg/dl (7-17); Calcium 8.5 mg/dl (8.4-10.2); Carbon Dioxide 32 mmol/L (22.0-30.0); Chloride 101 mmol/L (98-107); Creatinine Clearance Estimated 70 mL/min (50-200); Estimated Glomerular Filt Rate 53 ml/min (>60); GFR (African American) 64 ML/MIN (>60); Glucose 140 mg/dl (74-100); Potassium 4.4 mmoL/L (3.5-5.1); Sodium 141 mmol/L (136-145)
[2023-01-05 09:53] LABS: Anisocytosis 2+; Hypochromasia 2+; Lymphocytes % 7 % (10-50); Microcytosis 2+; Monocytes % 5 % (2-9); Neutrophils % 88 % (42-76); Nucleated Red Blood Cells 1; Platelet Estimate Normal; Total Cells Counted 100
[2023-01-05 09:54] LABS: Ovalocytes 2+
[2023-01-05 11:44] LABS: POC Glucose,Bedside 148 (70-110)
[2023-01-05 12:04] LABS: Iron 17 ug/dL (37-170)
[2023-01-05 12:13] LABS: Total Iron Binding Capacity 353 ug/dL (265-497)
[2023-01-05 12:40] LABS: Ferritin 14.1 ng/ml (11.1-264)
--- NOTE | 2023-01-05 15:32 | EXP.PN ---
Subjective *Date: 01/05/23 *Time: 15:32 Interval history: Patient was seen and evaluated at the bedside. denied chest pain, shortness of breath, nausea, vomiting, abdominal pain. Patient does not have any complaints at this time. she is on nasal canula 4L Exam Data for Last 24 hours Vital signs and Labs for Last 24 Hours: Temp Pulse Resp BP Pulse Ox O2 Del Method O2 Flow Rate 98.2 F 70 22 152/68 H 92 L Nasal Cannula 3 01/05/23 11:56 01/05/23 12:00 01/05/23 11:56 01/05/23 11:56 01/05/23 11:56 01/05/23 13:00 01/05/23 13:00 Laboratory Results - last 24 hr 01/04/23 16:12: POC Glucose 320 H* 01/04/23 20:24: POC Glucose 118 H 01/05/23 06:14: POC Glucose 152 H 01/05/23 06:39: WBC 17.8 H D, RBC 4.07 L, Hgb 7.7 L, Hct 25.4 L, MCV 62.4 L, MCH 18.9 L, MCHC 30.3 L, RDW 20.1 H, Plt Count 319, MPV 7.9, Neut % (Auto) 87.8 H, Lymph % (Auto) 7.7 L, [place] % (Auto) 4.3, Eos % (Auto) 0.1, Baso % (Auto) 0.1, Neut # (Auto) 15.7 H, Lymph # (Auto) 1.4, [place] # (Auto) 0.8, Eos # (Auto) 0.0, Baso # (Auto) 0.0, Total Counted 100, Neutrophils % (Manual) 88 H, Lymphocytes % (Manual) 7 L, Monocytes % (Manual) 5, Nucleated RBCs 1, Platelet Estimate Normal, Hypochromasia 2+, Anisocytosis 2+, Microcytosis 2+, Ovalocytes 2+, Sodium 141, Potassium 4.4, Chloride 101, Carbon Dioxide 32 H, Anion Gap 12.4, BUN 31 H D, Creatinine 1.00, Estimated Creat Clear 70, Estimated GFR 53 L, Est GFR ( Amer) 64, Glucose 140 H, Calcium 8.5, Iron 17 L, TIBC 353, Iron Saturation 4.21839 L, Ferritin 14.1 01/05/23 11:38: POC Glucose 148 H Temp Pulse Resp BP Pulse Ox O2 Del Method O2 Flow Rate 99.6 F 78 20 146/61 H 94 L Nasal Cannula 5 01/04/23 12:00 01/04/23 12:06 01/04/23 12:00 01/04/23 12:00 01/04/23 12:07 01/04/23 12:07 01/04/23 12:07 Laboratory Results - last 24 hr 01/03/23 12:10: Total Counted 100, Neutrophils % (Manual) 87 H, Lymphocytes % (Manual) 9 L, Monocytes % (Manual) 4, Platelet Estimate Normal, Hypochromasia 2+, Anisocytosis 1+, Microcytosis 2+, Ovalocytes 1+, Carbon Dioxide 32 H, Anion Gap 9.1, BUN 18 H, Creatinine 0.80, Estimated Creat Clear 74, Estimated GFR 68, Est GFR ( Amer) 82, Glucose 170 H, Calcium 8.5, Total Bilirubin 0.7, AST 32, ALT 24, Alkaline Phosphatase 81, Total Creatine Kinase 107, Troponin I < 0.01, NT-Pro-B Natriuret Pep 4180 H, Total Protein 7.1, Albumin 4.2, Globulin 2.9, Albumin/Globulin Ratio 1.4, Procalcitonin 0.070 01/03/23 12:37: VBG pH 7.36, VBG pCO2 49.9, VBG pO2 42.5 H, VBG HCO3 27.2, VBG Total CO2 28.8 H, VBG O2 Saturation 76.8 H, VBG Base Excess 1.7 01/03/23 14:50: SARS-CoV-2 (PCR) Not detected, Influenza A Untype (PCR) Not detected, Influenza Type B (PCR) Not detected 01/03/23 15:47: Troponin I 0.02 01/03/23 18:53: Troponin I 0.02, TSH 1.15 01/04/23 05:17: POC Glucose 333 H* 01/04/23 05:19: WBC 10.9 H, RBC 4.08 L, Hgb 7.8 L, Hct 25.4 L, MCV 62.2 L, MCH 19.0 L, MCHC 30.6 L, RDW 20.1 H, Plt Count 312, MPV 7.5, Neut % (Auto) 93.4 H, Lymph % (Auto) 4.9 L, [place] % (Auto) 1.4 L, Eos % (Auto) 0.1, Baso % (Auto) 0.1, Neut # (Auto) 10.2 H, Lymph # (Auto) 0.5 L, [place] # (Auto) 0.2, Eos # (Auto) 0.0, Baso # (Auto) 0.0, Total Counted 100, Neutrophils % (Manual) 91 H, Band Neutrophils % 1.0, Lymphocytes % (Manual) 6 L, Monocytes % (Manual) 2, Platelet Estimate Normal, Hypochromasia 2+, Anisocytosis 2+, Microcytosis 2+, Ovalocytes 2+, Sodium 136, Potassium 4.3, Chloride 100, Carbon Dioxide 29, Anion Gap 11.3, BUN 24 H D, Creatinine 0.90, Estimated Creat Clear 69, Estimated GFR 60, Est GFR ( Amer) 72, Glucose 295 H D, Calcium 8.7, Iron 19 L, TIBC 376, Iron Saturation 5.34533 L 01/04/23 10:27: POC Glucose 248 H I & O for Last 24 hours: Intake & Output 01/02/23 01/03/23 01/04/23 01/05/23 23:59 23:59 23:59 23:59 Intake Total 470 / 470 600 / 600 450 / 450 Output Total 500 / 600 500 / 500 1350 / 1350 Balance -30 / -130 100 / 100 -900 / -900 Weight 113.3 kg 106.821 kg 107.728 kg Intake & Output 01/01
[2023-01-05 16:43] LABS: POC Glucose,Bedside 261 (70-110)
--- NOTE | 2023-01-05 18:36 | PC.NURSE ---
pt has done well today. She got up to chair and has been more appropriate as the shift has gone on. She requires occasional reorienting but is appropriate during conversation. has tolerated o2 @ 3lnc today. gets up to BCS with sba. bed alarm in place.
[2023-01-05 20:02] LABS: POC Glucose,Bedside 70 (70-110)
[2023-01-06] VITALS: BP 120/49; PULSE 56; PULSE 60; RESP 18; TEMP 36.7; O2SAT 93; O2SAT 96
--- NOTE | 2023-01-06 02:21 | PC.NURSE ---
Pt remains confused and requires often reorientation, pt remains on 3L of O2 and is sating at 93%. Pt is urinating well, pt requested medication for her bowels PARRISH Chacon ordered a stool softener, Pt has yet to have a bowel movement. Stool sample has not been obtained as of yet. Pt has no C/O of pain and denies other needs at this time.
--- NOTE | 2023-01-06 03:33 | PC.NURSE ---
Occult blood stool sample obtained at this time
[2023-01-06 04:00] VITALS: BP 137/62; PULSE 60; PULSE 67; RESP 18; TEMP 36.8; O2SAT 93; BMI 35.5
[2023-01-06 04:01] LABS: Occult Blood,Stool Negative (Negative)
[2023-01-06 05:41] LABS: POC Glucose,Bedside 139 (70-110)
[2023-01-06 07:42] VITALS: BP 121/46; PULSE 65; RESP 21; TEMP 36.7; O2SAT 96
[2023-01-06 07:42] LABS: Basophils % 0.2 % (0.1-2.0); Eosinophils # 0.1 K/mm3 (0.0-0.4); Eosinophils % 0.7 % (0.1-12.0); Lymphocytes # 1.4 K/mm3 (0.7-4.5); Mean Platelet Volume 7.7 fl (7.4-10.4); Monocytes % 6.9 % (1.7-9.3)
[2023-01-06 07:48] LABS: Hematocrit 29.2 % (37.0-47.0); Lymphocytes % 14.3 % (10-50); Mean Corpuscular HGB Conc 29.3 g/dL (31.8-35.4); Mean Corpuscular Hemoglobin 18.2 pg (27.0-31.2); Mean Corpuscular Volume 62.3 fl (81-99); Monocytes # 0.7 K/mm3 (0.1-1.0); Neutrophils # 7.5 K/mm3 (1.8-7.8); Neutrophils % 77.9 % (37.0-80.0); Platelet Count 331 K/mm3 (142-424); Red Blood Count 4.69 M/mm3 (4.20-5.40); White Blood Count 9.6 K/mm3 (4.8-10.8)
[2023-01-06 07:49] LABS: Anion Gap 7.7 mEq/L (5-15); Blood Urea Nitrogen 26 mg/dl (7-17); Calcium 7.9 mg/dl (8.4-10.2); Carbon Dioxide 38 mmol/L (22.0-30.0); Chloride 98 mmol/L (98-107); Creatinine Clearance Estimated 67 mL/min (50-200); Estimated Glomerular Filt Rate 68 ml/min (>60); GFR (African American) 82 ML/MIN (>60); Glucose 122 mg/dl (74-100); Hemoglobin 8.6 g/dL (12.2-16.2); Potassium 3.7 mmoL/L (3.5-5.1); Sodium 140 mmol/L (136-145)
[2023-01-06 08:00] VITALS: O2SAT 95
[2023-01-06 11:11] LABS: POC Glucose,Bedside 177 (70-110)
--- NOTE | 2023-01-06 12:12 | PC.NURSE ---
Osman called to place a D/C summary.
--- NOTE | 2023-01-06 12:20 | EXP.DC.SUM ---
General Admission date:: 01/03/23 Discharge date: 01/06/23 HPI HPI HPI: Patient is a 87-year-old female alf resident who presented to hospital due to possible confusion, patient was found to be confused as well as patient was found hypoxic, EMS was called patient was brought to the hospital. Patient has dementia, patient does not remember the sequence of events. Patient has past medical history of diabetes mellitus hypertension COPD CHF. Hospital Course Hospital Course Hospital Course: Patient is a 87-year-old female alf resident who presented to hospital due to possible confusion, patient was found to be confused as well as patient was found hypoxic, EMS was called patient was brought to the hospital. Patient has dementia, patient does not remember the sequence of events. Patient has past medical history of diabetes mellitus hypertension COPD CHF. Assessment Shortness of breath likely secondary to COPD exacerbation, acute on chronic CHF Atrial fibrillation with RVR - rate controlled Acute metabolic encephalopathy Diabetes mellitus hypertension Anemia, likely Iron deficiency anemia DC on oral Doxycycline and Eliquis 2.5mg BID, Hb stable during hospital stay, f/u with Cardiology as OP, Stool occult test negative Exam Data for Last 24 hours Vital signs and Labs for Last 24 Hours: Temp Pulse Resp BP Pulse Ox O2 Del Method O2 Flow Rate 98.1 F 65 21 121/46 L 95 Nasal Cannula 2 01/06/23 07:42 01/06/23 07:42 01/06/23 07:42 01/06/23 07:42 01/06/23 08:00 01/06/23 12:04 01/06/23 12:04 Laboratory Results - last 24 hr 01/05/23 06:39: Ferritin 14.1 01/05/23 16:29: POC Glucose 261 H 01/05/23 19:53: POC Glucose 70 01/06/23 03:34: Stool Occult Blood Negative 01/06/23 05:32: POC Glucose 139 H 01/06/23 06:28: WBC 9.6 D, RBC 4.69, Hgb 8.6 L D, Hct 29.2 L, MCV 62.3 L, MCH 18.2 L, MCHC 29.3 L, RDW 20.0 H, Plt Count 331, MPV 7.7, Neut % (Auto) 77.9, Lymph % (Auto) 14.3, [place] % (Auto) 6.9, Eos % (Auto) 0.7, Baso % (Auto) 0.2, Neut # (Auto) 7.5, Lymph # (Auto) 1.4, [place] # (Auto) 0.7, Eos # (Auto) 0.1, Baso # (Auto) 0.0, Sodium 140, Potassium 3.7, Chloride 98, Carbon Dioxide 38 H, Anion Gap 7.7, BUN 26 H, Creatinine 0.80, Estimated Creat Clear 67, Estimated GFR 68, Est GFR ( Amer) 82 D, Glucose 122 H, Calcium 7.9 L 01/06/23 11:04: POC Glucose 177 H I & O for Last 24 hours: Intake & Output 01/03/23 01/04/23 01/05/23 01/06/23 23:59 23:59 23:59 23:59 Intake Total 470 / 470 600 / 600 720 / 960 600 / 600 Output Total 500 / 600 500 / 500 3900 / 3900 1800 / 1800 Balance -30 / -130 100 / 100 -3180 / -2940 -1200 / -1200 Weight 113.3 kg 106.821 kg 107.728 kg 102.739 kg Constitutional Constitutional: no acute distress *Routine HEENT Exam Head: Present normocephalic Eye: Present EOMI and PERRL ENT: Present mucous membranes moist *Routine Neck Exam Neck: Present supple; Absent lymphadenopathy *Routine Respiratory Exam Respiratory: Present CTA bilaterally *Routine Cardiovascular Exam Cardiovascular: Present RRR *Routine Abdominal Exam Abdominal: Present soft and normoactive bowel sounds; Absent tenderness *Routine Extremities Exam Extremities: Absent cyanosis, clubbing or edema *Routine Skin Exam Skin: Present warm; Absent rash *Routine Neurological Exam Neurological: Present alert and oriented X3 Results Data Completed and Pending Labs on day of discharge: Labs from last 24 hours 01/06/23 01/06/23 01/06/23 11:04 06:28 05:32 WBC 9.6 D RBC 4.69 Hgb 8.6 L D Hct 29.2 L MCV 62.3 L MCH 18.2 L MCHC 29.3 L RDW 20.0 H Plt Count 331 MPV 7.7 Neut % (Auto) 77.9 Lymph % (Auto) 14.3 [place] % (Auto) 6.9 Eos % (Auto) 0.7 Baso % (Auto) 0.2 Neut # (Auto) 7.5 Lymph # (Auto) 1.4 [place] # (Auto) 0.7 Eos # (Auto) 0.1 Baso # (Auto) 0.0 Sodium 140 Potassium 3.7 Chloride 98 Carbon Dioxide 38 H Anion Gap 7.7 B
--- NOTE | 2023-01-06 12:40 | PC.NURSE ---
report called to eryn hampton at [facility].
== END 2023-01-06 13:17 | DRG 291 ==
LOC: ER 15:02 → 2ND 15:36
PROVIDERS: Emergency Medicine; Physician Assistant; Admitting Provider Internal Medicine; Emergency Provider Emergency Medicine; PCP Emergency Medicine; Visit Provider Internal Medicine
DX: I11.0 Hypertensive heart disease with heart failure (principal); G93.41 Metabolic encephalopathy; J96.21 Acute and chronic respiratory failure with hypoxia; J18.9 Pneumonia, unspecified organism; I50.33 Acute on chronic diastolic (congestive) heart failure; J44.1 Chronic obstructive pulmonary disease with (acute) exacerbation; J44.0 Chronic obstructive pulmonary disease with (acute) lower respiratory infection; I50.9 Heart failure, unspecified; D64.9 Anemia, unspecified; E03.9 Hypothyroidism, unspecified; E11.9 Type 2 diabetes mellitus without complications; E78.5 Hyperlipidemia, unspecified; Z99.81 Dependence on supplemental oxygen; I25.10 Atherosclerotic heart disease of native coronary artery without angina pectoris; Z95.5 Presence of coronary angioplasty implant and graft; Z79.4 Long term (current) use of insulin; Z96.653 Presence of artificial knee joint, bilateral; M19.90 Unspecified osteoarthritis, unspecified site; I48.91 Unspecified atrial fibrillation
CPT/HCPCS: 36415; 70450; 71045; 80048; 80053; 82272; 82550; 82728; 82803; 82962; 83540; 83550; 83880; 84145; 84443; 84484; 85007; 85025; 87040; 87636; 93005; 93306; 94640; 94760; 94761; 99291; G0328; J0696; J2405